=== PATIENT | male | born 1950 | race Caucasian/White ===

== ENCOUNTER 2016-08-14 07:02 | Day surgery (SDC) | payer MEDICARE ==
[2016-08-06 16:05] VITALS: BMI 29.5
[~2016-08-14 07:02] MED LIST: GENTAMICIN 120 MG in SODIUM CHLORIDE 0.9% 100 ML IVPB ONE; LACTATED RINGERS 1,000 ML IV SCH; LIDOCAINE 1% 20 ML VIAL (10MG/ML) FOR IV START INTRADERMA PRN; MIDAZOLAM 2 MG/2 ML VIAL IV PRN; ONDANSETRON 4 MG/2 ML VIAL IVP ONE; ceFAZolin 2 GM in SODIUM CHLORIDE 0.9% 100 ML IVPB ONE
[2016-08-14 07:57] LABS: Glucose,Whole Blood 112 mg/dL (75-99)
[2016-08-14] MEDS ORDERED: MIDAZOLAM 2 MG/2 ML VIAL ONE (08:09)
[2016-08-14] MEDS ORDERED: ROCURONIUM BROMIDE 10 MG/ML 10 ML VIAL IV ONE (08:09)
[2016-08-14] MEDS ORDERED: PROPOFOL 10 MG/ML 20 ML VIAL IV ONE (08:09)
[2016-08-14] MEDS ORDERED: GLYCOPYRROLATE 0.2 MG/ML 2 ML VIAL ONE (08:09)
[2016-08-14] MEDS ORDERED: TRANEXAMIC ACID 1,000 MG/10 ML VIAL ONE (08:09)
[2016-08-14] MEDS ORDERED: fentaNYL (PF) 50 MCG/ML 2 ML AMP ONE (08:09)
[2016-08-14] MEDS ORDERED: HYDROmorphone (PF) 1 MG/ML ONE (08:09)
[2016-08-14] MEDS ORDERED: ePHEDrine 50 MG/ML 1 ML AMP ONE (08:09)
[2016-08-14] MEDS ORDERED: ceFAZolin 1,000 MG, GENTAMICIN 80 MG in SODIUM CHLORIDE 0.9% 1,000 ML IRRIGATION ONE (08:46)
[2016-08-14] MEDS ORDERED: LACTATED RINGERS 1,000 ML IV ONE ×2 (08:59)
[2016-08-14 10:13] VITALS: TEMP 98
[2016-08-14] MEDS: HYDROmorphone 1 MG/ML 1 ML SYRINGE IVP PRN ×2 (10:25→10:33)
[2016-08-14 10:42] VITALS: RESP 18
[2016-08-14] MEDS ORDERED: HYDROcodone/APAP 7.5-325MG 1 EACH TAB PO ONE (11:40)
[2016-08-14 12:12] VITALS: BP 168/83; PULSE 54
[2016-08-14 12:31] LABS: Glucose,Whole Blood 205 mg/dL (75-99)
--- NOTE | 2016-08-15 21:11 | P.OP ---
Date of Procedure: 08/14/16 Preoperative Diagnosis: Organic Erectile Dysfunction Postoperative Diagnosis: Same Procedure(s) Performed: Insertion of AMS 700 CX Inflatable Penile Prosthesis Anesthesia: DEVON Surgeon: Ollie Yeager Insurance Claims Representative #1: Sascha Marshall Estimated Blood Loss (ml): 50 IV fluids (ml): 1,100 Pathology: none sent Condition: stable Disposition: PACU Indications for Procedure: He is a 66-year-old male with a history of erectile dysfunction, dating back to approximately 1999. He hasd several episodes of gross painless hematuriain 2014 , likely due to small renal calculi. He was advised to undergo cystoscopy but decided against it. His ED risk factors include diabetes mellitus and hypertension. He has failed oral agents, and Caverject caused penile pain. A brief trial of tri-mix was unsuccessful. I do not feel MUSE would be a good option for him, given the pain he experienced with Caverject. He is not interested in a vacuum erection device. He has elected to undergo placement of an inflatable penile prosthesis. 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 Description of Procedure: The patient was taken to the operating room and placed in the supine position. The external genitalia and lower abdomen were prepped with Betadine solution, more vigorously and for a greater duration than would be considered normal. The abdomen was then prepped with DuraPrep. The patient was then draped. The scalpel was used to make a midline infrapubic incision. The Bovie electrocautery was used to incise the subcutaneous fat and Tian's fascia, thus exposing the anterior rectus fascia. The corporal bodies were cleared of connective tissue, thus exposing the tunica albuginea. A Peyronie's plaque was noted on the left side. 3-0 PDS stay sutures were placed within the tunica albuginea bilaterally. The stay sutures were placed on the left side away from the Peyronie's plaque. Care was taken to avoid the medial neurovascular complex. On each side, the scalpel was then used to make a longitudinal corporotomy measuring approximately 2-3 cm in length. Metzenbaum scissors were used to develop a plane proximally and distally within each corporal body, just beneath the tunica albuginea. The corporal bodies were then dilated in the standard fashion using Hegar dilators, up to 13 mm. There was no concern of tunica perforation. The corporal bodies were then measured, each measuring 18 cm in length. A 15 cm AMS 700 CX prosthesis was selected, and 3 cm rear-tip extenders were used. The reservoir was irrigated to remove all air bubbles from it. The Bovie electrocautery was used to incise the anterior rectus fascia in the midline, just superior to the pubis. Blunt digital dissection was used to create a space within the retroperitoneum, within which the reservoir was placed. The reservoir tubing was brought through the anterior rectus fascia to the right of the midline, and the fascia was then closed using 0 PDS suture in a running fashion. Each of the cylinders were then placed within the corporal bodies in the standard fashion, using the Anton urologist and Keef needle to pass the cylinders distally and through the glans penis. As each cylinder was placed, it was inflated to ensure that it was seated correctly within the corporal body. The cylinder was then deflated, and the corporotomy was closed using 3-0 PDS suture in a running fashion. Care was taken to avoid damage to either cylinder or tubing. Once the corporotomies had been closed, a dartos pouch was created within the right anterior hemiscrotum. The pump was passed down into this dartos pouch, where it was readily palpable. Next, the reservoir was filled with 65 mL of 0.9 normal saline. The tubing from the reservoir and pump were cut to the appropriate length, and were then connected in the standard fashion. The prosthesis was then cycled, and he was verified to have a rigid and straight erection. Tian's fascia was closed using 3-0 chromic suture in a running fashion, thus burying the tubing. The skin was closed using 3-0 chromic suture in a running subcuticular fashion. Steri-Strips were then applied. The patient was straight catheterized to drain his bladder. The urine drained was clear yellow in color. A sterile gauze dressing was applied over the incision. A scrotal support was also placed. All sponge and needle counts were correct. The patient tolerated the procedure well was taken to the recovery room in stable condition.
== END 2016-08-14 12:32 | disposition home or self-care (01) ==
LOC: OR 07:02
PROVIDERS: ATTEND Urology
DX: N52.01 Erectile dysfunction due to arterial insufficiency (principal); I25.10 Atherosclerotic heart disease of native coronary artery without angina pectoris; I10 Essential (primary) hypertension; Z72.0 Tobacco use; E78.5 Hyperlipidemia, unspecified; E11.9 Type 2 diabetes mellitus without complications; Z79.4 Long term (current) use of insulin; Z79.84 Long term (current) use of oral hypoglycemic drugs; E66.9 Obesity, unspecified; Z68.29 Body mass index [BMI] 29.0-29.9, adult; Z79.82 Long term (current) use of aspirin; Z79.899 Other long term (current) drug therapy
CPT/HCPCS: 54401; C1713; J2250; J1580 ×2; J0690 ×2; J2405; J3010; J1170; J2704

== ENCOUNTER 2017-05-19 12:00 | Emergency (ER) | payer MEDICARE ==
[2017-05-19 12:14] VITALS: RESP 18; TEMP 98.9
[2017-05-19] MEDS ORDERED: MECLIZINE 12.5 MG TAB PO STA (12:54)
[2017-05-19 13:12] LABS: Basophils % (A) 1 %; CH 31.8; CHCM 34.5; Eosinophils # (A) 0.2 k/uL (0-0.7); Eosinophils % (A) 3 %; HCT 45.2 % (39.0-53.0); HDW 2.63; HGB 15.6 gm/dL (13.0-17.5); Luc # (Auto) 0.14; Luc % (Auto) 2; Lymphocytes # (A) 1.7 k/uL (1.0-4.8); Lymphocytes % (A) 25 %; MCH 32.1 pg (25.0-35.0); MCHC 34.6 g/dL (31.0-37.0); MCV 92.7 fL (80.0-100.0); Mean Platelet Volume 7.4; Monocytes # (A) 0.4 k/uL (0-1.0); Monocytes % (A) 6 %; Neutrophils # (A) 4.3 k/uL (1.3-7.7); Neutrophils % (A) 64 %; RBC 4.87 m/uL (4.30-5.90); RDW 12.3 % (11.5-15.5); WBC 6.7 k/uL (3.8-10.6); WBC (Perox) 6.61
[2017-05-19 13:21] LABS: ALT 32 U/L (21-72); AST 22 U/L (17-59); Alkaline Phosphatase 34 U/L (38-126); Anion Gap 13 mmol/L; Blood Urea Nitrogen 20 mg/dL (9-20); Calcium 9.4 mg/dL (8.4-10.2); Carbon Dioxide 18 mmol/L (22-30); Chloride 110 mmol/L (98-107); Glucose 75 mg/dL (74-99); Magnesium 1.9 mg/dL (1.6-2.3); Non-African American GFR(MDRD) 58 (>60 ml/min/1.73 sqM); Potassium 4.7 mmol/L (3.5-5.1); Sodium 141 mmol/L (137-145); Total Bilirubin 0.6 mg/dL (0.2-1.3)
--- NOTE | 2017-05-19 13:45 | ED ---
Dizziness HPI - General Chief Complaint: Dizziness Stated Complaint: Dizziness/nausea Time Seen by Provider: 05/19/17 12:33 Source: patient, RN notes reviewed Mode of arrival: wheelchair Limitations: no limitations - History of Present Illness Initial Comments: This is a 67-year-old male who presents with complaints of dizziness. He states he had 2 or episode 4 days ago which resolved but this morning upon getting up he was very dizzy with movement of his head and positional changes. He also had neck supple headache was Better after taking some ibuprofen. No blurry vision no current head neck or back pain no focal deficits was upper or lower extremities no prior history of vertigo no history of stroke or head injury. No recent upper respiratory infections. MD Complaint: dizziness - Related Data Home Medications Medication Instructions Recorded Confirmed Aspirin 81 mg PO DAILY 06/28/14 05/19/17 Fenofibrate [Tricor] 160 mg PO DAILY 06/28/14 05/19/17 Insulin Glargine [Lantus] 40 unit SQ HS 06/28/14 05/19/17 Lisinopril [Prinivil] 20 mg PO BID 06/28/14 05/19/17 Simvastatin [Zocor] 40 mg PO DAILY 06/28/14 05/19/17 Torsemide [Demadex] 10 mg PO DAILY 06/28/14 05/19/17 cloNIDine HCL [Catapres] 0.2 mg PO TID 06/28/14 05/19/17 metFORMIN HCL [Glucophage] 500 mg PO AC-BID 06/28/14 05/19/17 glipiZIDE [Glucotrol] 5 mg PO AC-BID 07/26/14 05/19/17 amLODIPine [Norvasc] 5 mg PO HS 08/06/16 05/19/17 Atenolol [Tenormin] 50 mg PO BID 05/19/17 05/19/17 Previous Rx's Medication Instructions Recorded Meclizine [Antivert] 25 mg PO TID #20 tab 05/19/17 Allergies Allergy/AdvReac Type Severity Reaction Status Date / Time No Known Allergies Allergy Verified 05/19/17 14:28 Review of Systems ROS Statement: Those systems with pertinent positive or pertinent negative responses have been documented in the HPI. ROS Other: All systems not noted in ROS Statement are negative. Past Medical History Past Medical History: Diabetes Mellitus, GERD/Reflux, Hyperlipidemia, Hypertension, Pneumonia Additional Past Medical History / Comment(s): HEART MURMUR, palpitations, History of Any Multi-Drug Resistant Organisms: None Reported Past Surgical History: Adenoidectomy, Cholecystectomy, Heart Catheterization, Hernia Repair, Orthopedic Surgery, Tonsillectomy Additional Past Surgical History / Comment(s): rt rotator cuff surg., rt knee arthroscopy, hiatal hernia repair, rt inguinal hernia repair, hemorrhoidectomy Past Anesthesia/Blood Transfusion Reactions: Motion Sickness Date of Last Stent Placement:: 2009 Past Psychological History: No Psychological Hx Reported Smoking Status: Former smoker Past Alcohol Use History: None Reported Past Drug Use History: None Reported - Past Family History Father Family Medical History: Unable to Obtain Mother Family Medical History: No Reported History General Exam - General Exam Comments Initial Comments: This is a well-developed well-nourished awake alert oriented times 3 male Limitations: no limitations General appearance: alert, in no apparent distress Head exam: Present: atraumatic, normocephalic, normal inspection Eye exam: Present: normal appearance, PERRL, EOMI. Absent: scleral icterus, conjunctival injection, periorbital swelling ENT exam: Present: normal exam, mucous membranes moist Neck exam: Present: normal inspection. Absent: tenderness, meningismus, lymphadenopathy Respiratory exam: Present: normal lung sounds bilaterally. Absent: respiratory distress, wheezes, rales, rhonchi, stridor Cardiovascular Exam: Present: regular rate, normal rhythm, normal heart sounds. Absent: systolic murmur, diastolic murmur, rubs, gallop, clicks GI/Abdominal exam: Present: soft, normal bowel sounds. Absent: distended, tenderness, guarding, rebound, rigid Extremities exam: Present: normal inspection, full ROM, normal capillary refill. Absent: tenderness, pedal edema, joint swelling, calf tenderness Back exam: Present: normal inspection Neurological exam: Present: alert, oriented X3, CN II-XII intact Psychiatric exam: Present: normal affect, normal mood Skin exam: Present: warm, dry, intact, normal color. Absent: rash Course Vital Signs 05/19/17 05/19/17 05/19/17 12:12 13:31 14:02 Temperature 98.9 F Pulse Rate 77 58 L 54 L Respiratory 18 18 18 Rate Blood Pressure 138/71 131/76 145/81 O2 Sat by Pulse 97 96 96 Oximetry EKG Findings - EKG Results: EKG: interpreted by SHELBY, sinus rhythm (Sinus rhythm with a first-degree AV block rate was 70 MN interval 244 QRS duration 84 QT since QTC of 46/[address]-T wave changes.) Medical Decision Making - Medical Decision Making Patient is feeling improved I did discuss the findings with him regarding the head CT patient will be discharged on Antivert he is follow-up with his doctor return when necessary the presentation consistent with benign positional vertigo I did discuss case with Dr. Haro the patient will be discharged on at this time and Vioxx or not indicated. - Lab Data Result diagrams: 05/19/17 12:50 05/19/17 12:50 Lab Results 05/19/17 05/19/17 05/19/17 Range/Units 12:50 12:50 12:50 WBC 6.7 (3.8-10.6) k/uL RBC 4.87 (4.30-5.90) m/uL Hgb 15.6 (13.0-17.5) gm/dL Hct 45.2 (39.0-53.0) % MCV 92.7 (80.0-100.0) fL MCH 32.1 (25.0-35.0) pg MCHC 34.6 (31.0-37.0) g/dL RDW 12.3 (11.5-15.5) % Plt Count 282 (150-450) k/uL Neutrophils % 64 % Lymphocytes % 25 % Monocytes % 6 % Eosinophils % 3 % Basophils % 1 % Neutrophils # 4.3 (1.3-7.7) k/uL Lymphocytes # 1.7 (1.0-4.8) k/uL Monocytes # 0.4 (0-1.0) k/uL Eosinophils # 0.2 (0-0.7) k/uL Basophils # 0.0 (0-0.2) k/uL Sodium 141 (137-145) mmol/L Potassium 4.7 (3.5-5.1) mmol/L Chloride 110 H (98-107) mmol/L Carbon Dioxide 18 L (22-30) mmol/L Anion Gap 13 mmol/L BUN 20 (9-20) mg/dL Creatinine 1.24 (0.66-1.25) mg/dL Est GFR (MDRD) Af Amer >60 (>60 ml/min/1.73 sqM) Est GFR (MDRD) Non-Af 58 (>60 ml/min/1.73 sqM) Glucose 75 (74-99) mg/dL Calcium 9.4 (8.4-10.2) mg/dL Magnesium 1.9 (1.6-2.3) mg/dL Total Bilirubin 0.6 (0.2-1.3) mg/dL AST 22 (17-59) U/L ALT 32 (21-72) U/L Alkaline Phosphatase 34 L (38-126) U/L Total Creatine Kinase 61 (55-170) U/L CK-MB (CK-2) 1.0 (0.0-2.4) ng/mL CK-MB (CK-2) Rel Index 1.6 Total Protein 7.0 (6.3-8.2) g/dL Albumin 4.2 (3.5-5.0) g/dL TSH 2.140 (0.465-4.680) mIU/L - Radiology Data Radiology results: report reviewed (I did review the imaging and reports possible evidence of mastoiditis otherwise no acute changes), image reviewed Disposition Clinical Impression: Benign paroxysmal positional vertigo Disposition: HOME SELF-CARE Condition: Good Instructions: Dizziness (ED), Benign Paroxysmal Positional Vertigo (ED) Prescriptions: Meclizine [Antivert] 25 mg PO TID #20 tab Referrals: Alex Timmons MD [Primary Care Provider] - 1-2 days
--- NOTE | 2017-05-19 14:09 | CT ---
EXAMINATION TYPE: CT brain wo con DATE OF EXAM: 05/19/2017 COMPARISON: NONE HISTORY: Dizziness CT DLP: 782.6 mGycm Automated exposure control for dose reduction was used. Helical imaging through the brain FINDINGS: There is mild cortical atrophy. No hemorrhage or hydrocephalus. Calvarium is intact. Suspect some Whi te matter low-attenuation within the periventricular locations. Mastoid air cells show some questiona ble inflammatory change on the right. Cerebral vascular calcifications are present. The orbits show s ymmetric appearance. IMPRESSION: CORRELATE FOR POSSIBLE MASTOIDITIS ON THE RIGHT. AGE-RELATED CHANGES OF ATROPHY AND PROBABLE CHRONIC SMALL VESSEL ISCHEMIA.
[2017-05-19 14:11] VITALS: BP 145/81; PULSE 54
== END 2017-05-19 15:21 | disposition home or self-care (01) ==
LOC: EC 12:00
DX: H81.10 Benign paroxysmal vertigo, unspecified ear (principal); R51 Headache; E78.5 Hyperlipidemia, unspecified; I10 Essential (primary) hypertension; E11.9 Type 2 diabetes mellitus without complications; Z87.891 Personal history of nicotine dependence; Z79.4 Long term (current) use of insulin; Z79.82 Long term (current) use of aspirin; Z79.899 Other long term (current) drug therapy
CPT/HCPCS: 36415; 70450; 80053; 82550; 82553; 83735; 84443; 85025; 93005; 99284

== ENCOUNTER → 2019-04-08 | Outpatient (CLI) | payer MEDICARE | END | disposition home or self-care (01) | LOC: LABWHC1 11:53 | PROVIDERS: ATTEND Internal Medicine Gastroenterology | DX: K52.9 Noninfective gastroenteritis and colitis, unspecified (principal) | CPT/HCPCS: 83993 ==

== ENCOUNTER → 2019-04-27 | Outpatient (CLI) | payer MEDICARE ==
--- NOTE | 2019-04-27 15:54 | US ---
EXAMINATION TYPE: US kidneys/renal and bladder DATE OF EXAM: 04/27/2019 COMPARISON: CT abdomen and pelvis January 09, 2015 CLINICAL HISTORY: N39.0 UTI. HX UTI. No pain currently. EXAM MEASUREMENTS: Right Kidney: 12.2 x 5.3 x 6.1 cm Left Kidney: 11.2 x 5.1 x 5.3 cm Right Kidney: Lower pole echogenic focus with shadow = 0.7 x 0.7 cm Left Kidney: Nonshadowing echogenic focus in lower pole- 0.4 x 0.6 cm Bladder: Under distended, wall= 5.3 mm upper limits of normal for a poorly distended bladder Bilateral Jets not seen There is no evidence for hydronephrosis at this point in time. No nephrolithiasis is seen. No patricia s are identified. The urinary bladder is not greatly distended. Bilateral ureteral jets are not see n. IMPRESSION: Small bilateral renal calculi seen better on CT 2015 versus ultrasound. No hydronephrosis is noted bilaterally.
== END | disposition home or self-care (01) ==
LOC: RADUSWWP 15:16
PROVIDERS: ATTEND Internal Medicine Geriatric Medicine
DX: N39.0 Urinary tract infection, site not specified (principal)
CPT/HCPCS: 76770

== ENCOUNTER 2022-03-20 06:45 | Day surgery (SDC) | payer MEDICARE ==
[2022-03-18 10:09] VITALS: BMI 29.5
[~2022-03-20 06:45] MED LIST changes: -GENTAMICIN 120 MG in SODIUM CHLORIDE 0.9% 100 ML IVPB ONE; -LIDOCAINE 1% 20 ML VIAL (10MG/ML) FOR IV START INTRADERMA PRN; -MIDAZOLAM 2 MG/2 ML VIAL IV PRN; +MOXIFLOXACIN HCL 0.5% DROPS 3 ML BTL OP PRN; -ONDANSETRON 4 MG/2 ML VIAL IVP ONE; +TETRACAINE 0.5% OPHTH (PF) DROPS 4 ML BTL OP PRN; +TIMOLOL 0.5% OPHTH DROPS 5 ML BTL OP PRN; -ceFAZolin 2 GM in SODIUM CHLORIDE 0.9% 100 ML IVPB ONE
[2022-03-20] MEDS: CYCLOPENTOLATE 1% OPHTH SOLN 2 ML BTL OP PRN ×3 (07:26→07:38)
[2022-03-20 07:28] VITALS: TEMP 97.5
[2022-03-20] MEDS: PHENYLEPHRINE 2.5% OPHTH DRP 2ML OP PRN ×3 (07:29→07:41)
[2022-03-20 07:41] LABS: Glucose,Whole Blood 146 mg/dL (70-110)
[2022-03-20] MEDS ORDERED: TIMOLOL 0.5% OPHTH SOLN (PF) 0.2 ML DROPERETTE LEFT EYE ONE ×2 (07:53→08:10)
[2022-03-20] MEDS ORDERED: MOXIFLOXACIN HCL 0.5% DROPS 3 ML BTL LEFT EYE ONE ×2 (07:53→08:10)
[2022-03-20] MEDS ORDERED: BALANCED SALT IRRIG SOLN COMB2 15 ML IRRIG.SOLN INTRAOCULA ONE ×2 (07:53→08:10)
[2022-03-20] MEDS ORDERED: HYALURONATE SODIUM INTRAOCULAR 1 EACH SYRINGE (12MG/ML) INTRAOCULA ONE ×2 (07:53→08:10)
[2022-03-20] MEDS ORDERED: LIDOCAINE 1% (PF) 10MG/ML VIAL MISCELLANE ONE ×2 (07:54→08:10)
[2022-03-20] MEDS ORDERED: fentaNYL (PF) 50 MCG/ML 2 ML AMP ONE (08:09)
[2022-03-20] MEDS ORDERED: MIDAZOLAM 2 MG/2 ML VIAL ONE (08:09)
[2022-03-20] MEDS ORDERED: EPINEPHrine (PF) 0.3 ML in BALANCED SALT IRRIG SOLN COMB2 500 ML IRRIGATION ONE (08:11)
--- NOTE | 2022-03-20 08:36 | P.OP ---
Date of Procedure: 03/20/22 Preoperative Diagnosis: NS & CS Postoperative Diagnosis: same Procedure(s) Performed: PIOL, OS Implants: MX60 21.00 Anesthesia: MAC Surgeon: Vitaliy Craig Pathology: none sent Condition: stable Disposition: same day Indications for Procedure: blurry vision Operative Findings: no complications
[2022-03-20] MEDS ORDERED: LACTATED RINGERS 1,000 ML IV ONE (08:38)
[2022-03-20 08:46] VITALS: RESP 17
[2022-03-20 09:01] VITALS: BP 145/85; PULSE 61
--- NOTE | 2022-03-20 23:24 | OP ---
OPERATIVE REPORT PROCEDURE PERFORMED: Phacoemulsification of cataract and intraocular lens implant to the left eye. 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 POSTOPERATIVE DIAGNOSES: Nuclear sclerosis and cortical sclerosis. NARRATIVE: After obtaining the appropriate consent, the patient was brought to the operating room. There the patient was placed under cardiac monitoring, prepped and draped in the usual sterile manner. The patient was approached from the left temporal side. The mm Alton ring inked in gentian katherine was placed centrally on the cornea. At the 11 o'clock position, a 1.1 mm keratome was used to create a paracentesis port. Through this opening, 1% Xylocaine MPF 50/50 mix with balanced salt solution was injected into the anterior chamber. This was followed by stabilization of the anterior chamber with Amvisc viscoelastic. At the 9 o'clock position, a 2.75 mm roman keratome was used to create a self-scaling corneal flap incision in a Langerman fashion. Through this opening, a cystotome was introduced to begin a continuous tear capsulorrhexis which was completed using the Utrata forceps. Care was taken to ensure that the capsulorrhexis was at least the size of the omari on the anterior cornea. Hydrodissection and hydrodelineation of the lens were accomplished with balanced salt solution. Phacoemulsification of the lens utilizing phaco chop was accomplished in 9.29 seconds at 13% power. Addition Xylocaine MPF was instilled into the anterior chamber. This was followed by removal of the remaining cortex under irrigation and aspiration along with careful polishing of the posterior capsule in a capsule vacuum mode. Additional Amvisc viscoelastic was then used to stabilize the capsular bag, and the Bausch [employer] Lomb MX60E 21.0 diopters intraocular lens was injected into the capsular bag without difficulty. The lens was rotated 270 degrees so that the haptics resided at the 6 and 12 o'clock positions, and all remaining viscoelastic was then removed from within the capsular bag and around the anterior chamber. The eye was brought to normal intraocular pressure through the paracentesis port along with slight hydration of the incision sites. Watertight integrity was confirmed using a fluorescein strip. The patient then received 2 drops of 0.5% timolol followed by 2 drops of Vigamox and 2 drops of 1% atropine. The patient was then lightly patched and shielded in the usual manner. There was no complications from the procedure. The patient tolerated the procedure well and was returned to outpatient recovery in good condition. MMODL / IJN: [id number] /
== END 2022-03-20 09:15 | disposition home or self-care (01) ==
LOC: OR 06:45
PROVIDERS: ATTEND Ophthalmology
DX: E11.36 Type 2 diabetes mellitus with diabetic cataract (principal); H25.12 Age-related nuclear cataract, left eye; H25.012 Cortical age-related cataract, left eye; Z98.41 Cataract extraction status, right eye; Z96.1 Presence of intraocular lens; I10 Essential (primary) hypertension; Z86.73 Personal history of transient ischemic attack (TIA), and cerebral infarction without residual deficits; Z79.899 Other long term (current) drug therapy; Z79.4 Long term (current) use of insulin; E11.69 Type 2 diabetes mellitus with other specified complication; E78.5 Hyperlipidemia, unspecified; K21.9 Gastro-esophageal reflux disease without esophagitis; Z79.82 Long term (current) use of aspirin; Z87.891 Personal history of nicotine dependence; Z82.49 Family history of ischemic heart disease and other diseases of the circulatory system
CPT/HCPCS: 66984; C1780; J2250; J0171; J3010; J2001

== ENCOUNTER 2023-04-24 11:33 | Observation (INO) | payer MEDICARE ==
--- NOTE | 2023-04-24 12:57 | ED ---
General Adult HPI - General Source: patient, RN notes reviewed Mode of arrival: ambulatory Limitations: no limitations <Bony Milian - Last Filed: 04/24/23 15:35> <Greyson Li - Last Filed: 04/24/23 18:11> - General Stated complaint: Eye Issue, sent by pcp for Neuro Consult Time Seen by Provider: 04/24/23 12:56 - History of Present Illness Initial comments: 33-year-old male presents emergency Department from home by her condition to come in for evaluation of CVA. Patient's been having some visual disturbances states that he leg as I is bouncing up and down. Patient did see PCP yesterday worsened and advised to come in. (Bony Milian) This is a 73-year-old male who presents emergency Department complaining that 3 weeks ago he had some eye that was deviating up to the right and he stated that lasted for a little while and then went away on its own. Patient states it is much of it and then 2 days ago he started having symptoms where his eyes were both moving he states spontaneously and his vision was extremely blurred on that also subsided but he went saw his cube machine tender yesterday his cube machine tender that there was nothing going on with his eyes and that he needed to immediately see a neurologist he contacted his primary medical care doctor's medical care doctor wanted the patient to come to the hospital and be evaluated by neurologist. Patient states currently his only symptom is just overall fatigue and he just doesn't feel quite right. Patient denies any numbness weakness. P atient denies any fever chills or cough. Patient denies any lightheadedness or dizziness. Patient denies any chest pain difficulty breathing or shortness of breath. (Greyson Li) - Related Data Home Medications Medication Instructions Recorded Confirmed Aspirin 81 mg PO DAILY@0800 06/28/14 04/24/23 Fenofibrate [Tricor] 160 mg PO DAILY@0800 06/28/14 04/24/23 Insulin Glargine [Lantus] 45 unit SQ DAILY@0800 06/28/14 04/24/23 cloNIDine HCL [Catapres] 0.2 mg PO TID@0800,1700,2300 06/28/14 04/24/23 lisinopriL [Prinivil] 20 mg PO BID@0800,2300 06/28/14 04/24/23 metFORMIN HCL [Glucophage] 1,000 mg PO AC-BID 06/28/14 04/24/23 glipiZIDE [Glucotrol] 2.5 - 5 mg PO AC-BID PRN 07/26/14 04/24/23 amLODIPine [Norvasc] 5 mg PO HS@2300 08/06/16 04/24/23 Magnesium 250 mg PO DAILY@0800 04/24/23 04/24/23 Metoprolol Succinate [Toprol XL] 100 mg PO HS@2300 04/24/23 04/24/23 Omeprazole [PriLOSEC] 20 mg PO BID@0800,2300 04/24/23 04/24/23 Potassium Citrate [Potassium 10 meq PO DAILY@0800 04/24/23 04/24/23 Citrate ER] Rosuvastatin [Crestor] 20 mg PO DAILY@0800 04/24/23 04/24/23 Tamsulosin [Flomax] 0.4 mg PO DAILY@0800 04/24/23 04/24/23 Torsemide [Demadex] 5 mg PO DAILY@0800 04/24/23 04/24/23 Zinc Gluconate [Zinc] 50 mg PO DAILY@0800 04/24/23 04/24/23 cycloSPORINE 0.05% OPHTH SOLN 1 applicator BOTH EYES 04/24/23 04/24/23 [Restasis] BID@0800,2300 Allergies Allergy/AdvReac Type Severity Reaction Status Date / Time No Known Allergies Allergy Verified 04/24/23 15:57 Review of Systems ROS Other: All systems not noted in ROS Statement are negative. <Bony Milian - Last Filed: 04/24/23 15:35> ROS Other: All systems not noted in ROS Statement are negative. <Greyson Li - Last Filed: 04/24/23 18:11> ROS Statement: Those systems with pertinent positive or pertinent negative responses have been documented in the HPI. Past Medical History Past Medical History: Diabetes Mellitus, GERD/Reflux, Hyperlipidemia, Hypertension, Pneumonia Additional Past Medical History / Comment(s): HEART MURMUR, palpitations History of Any Multi-Drug Resistant Organisms: None Reported Past Surgical History: Adenoidectomy, Cholecystectomy, Heart Catheterization, Hernia Repair, Orthopedic Surgery, Tonsillectomy Additional Past Surgical History / Comment(s): rt rotator cuff surg., rt knee arthroscopy, hiatal hernia repair, rt inguinal hernia repair, hemorrhoidectomy Past Anesthesia/Blood Transfusion Reactions: No Reported Reaction, Motion Sickness Date of Last Stent Placement:: 2009 Past Psychological History: No Psychological Hx Reported Smoking Status: Never smoker Past Alcohol Use History: None Reported Additional Past Alcohol Use History / Comment(s): past occ cigar use Past Drug Use History: None Reported - Past Family History Father Family Medical History: Myocardial Infarction ([place]) Additional Family Medical History / Comment(s): in his 40's due to [place] Mother Family Medical History: No Reported History <Bony Milian - Last Filed: 04/24/23 15:35> General Exam <Bony Milian - Last Filed: 04/24/23 15:35> <Greyson Li - Last Filed: 04/24/23 18:11> - General Exam Comments Initial Comments: Was pt. sent in by a medical professional or institution (Dr. PA, DELIVERY RECRUITER, urgent care, hospital, or intermediate...) When possible be specific @ -[No] Did you speak to anyone other than the patient for history (EMS, parent, family, police, friend...)? What history was obtained from this source @ -[No] Did you review nursing and triage notes (agree or disagree)? Why? @ -[I reviewed and agree with nursing and triage notes] Visual Physical Exam Vital signs reviewed General: Well-appearing, nontoxic, no acute distress. Head: Normocephalic, atraumatic Eyes: PERRLA, EOMI ENT: Airway patent Chest: Nonlabored breathing Skin: No visual rash, normal skin tone Neuro: Alert and oriented 3 Musculoskeletal: No gross abnormalities (Bony Milian) GENERAL: Patient is well-developed and well-nourished. Patient is nontoxic and well- hydrated and is in no acute distress. ENT: Neck is soft and supple. No significant lymphadenopathy is noted. Oropharynx is clear. Moist mucous membranes. Neck has full range of motion without eliciting any pain. EYES: The sclera were anicteric and conjunctiva were pink and moist. Extraocular movements were intact and pupils were equal round and reactive to light. Eyelids were unremarkable. PULMONARY: Unlabored respirations. Good breath sounds bilaterally. No audible rales rhonchi or wheezing was noted. CARDIOVASCULAR: There is a regular rate and rhythm without any murmurs gallops or rubs. ABDOMEN: Soft and nontender with normal bowel sounds. SKIN: Skin is clear with no lesions or rashes and otherwise unremarkable. NEUROLOGIC: Patient is alert and oriented x3. Cranial nerves II through XII are grossly intact. Motor and sensory are also intact. Normal speech, volume and content. Symmetrical smile. MUSCULOSKELETAL: Normal extremities with adequate strength and full range of motion. LYMPHATICS: No significant lymphadenopathy is noted PSYCHIATRIC: Normal psychiatric evaluation. (Greyson Li) Course Vital Signs 04/24/23 04/24/23 04/24/23 12:53 16:58 17:32 Temperature 98.6 F 98.1 F Pulse Rate 65 78 63 Respiratory 18 18 18 Rate Blood Pressure 165/94 162/89 211/97 O2 Sat by Pulse 97 98 97 Oximetry Medical Decision Making - Lab Data Result diagrams: 04/24/23 13:18 04/24/23 13:18 <Bony Milian - Last Filed: 04/24/23 15:35> - Lab Data Result diagrams: 04/24/23 13:18 04/24/23 13:18 <Greyson Li - Last Filed: 04/24/23 18:11> - Medical Decision Making I performed a quick note portion of this chart signed Bony Milian PA-C (Bony Milian) EKG was interpreted by myself. EKG shows a sinus rhythm at 63 bpm VA interval is 297 QRSs 104 Q-T intervals 408 QTC is 414 per patient's EKG shows no ST segment elevation or depression Was pt. sent in by a medical professional or institution (MIC Wood, DELIVERY RECRUITER, urgent care, hospital, or intermediate...) When possible be specific @ -Patient's primary medical care doctor told him to come to the emergency department as well as his eye doctor told to follow-up with the neurologist immediately Did you speak to anyone other than the patient for history (EMS, parent, family, police, friend...)? What history was obtained from this source @ -[No] Did you review nursing and triage notes (agree or disagree)? Why? @ -[I reviewed and agree with nursing and triage notes] Were old charts reviewed (outside hosp., previous admission, EMS record, old EKG, old radiological studies, urgent care reports/EKG's, intermediate records)? Report findings @ -I reviewed prior charts in prior lab work on this patient Differential Diagnosis (chest pain, altered mental status, abdominal pain women, abdominal pain men, vaginal bleeding, weakness, fever, dyspnea, syncope, headache, dizziness, GI bleed, back pain, seizure, CVA, palpatations, mental health, musculoskeletal)? @ -Differential CVA Ischemic stroke, hemorrhagic stroke, brain tumor, atypical migraine, Wernicke's encephalopathy, seizure, multiple sclerosis, meningitis, encephalitis, hypog lycemia, Guillain-Harry, electrolytes disturbance, myasthenia gravis.... This is not meant to be an all-inclusive list EKG interpreted by me (3pts min.). @ -[As above] X-rays interpreted by me (1pt min.). @ -Chest x-ray showed no acute abnormality CT interpreted by me (1pt min.). @ -CT of the brain showed no acute abnormality U/S interpreted by me (1pt. min.). @ -[None done] What testing was considered but not performed or refused? (CT, X-rays, U/S, labs)? Why? @ -[None] What meds were considered but not given or refused? Why? @ -[None] Did you discuss the management of the patient with other professionals (professionals i.e. , PA, DELIVERY RECRUITER, lab, RT, psych nurse, rn social services, corporate real estate manager, teacher, ordnance corps officer, catalytic case operator)? Give summary @ -I spoke with Dr. Gandhi he agreed to admit the patient admitted the patient I wrote admitting orders Was smoking cessation discussed for >3mins.? @ -[No] Was critical care preformed (if so, how long)? @ -[No] Were there social determinants of health that impacted care today? How? (Homelessness, low income, unemployed, alcoholism, drug addiction, transportation, low edu. Level, literacy, decrease access to med. care, fdc, rehab)? @ -[No] Was there de-escalation of care discussed even if they declined (Discuss DNR or withdrawal of care, Hospice)? DNR status @ -[No] What co-morbidities impacted this encounter? (DM, HTN, Smoking, COPD, CAD, Cancer, CVA, ARF, Chemo, Hep., AIDS, mental health diagnosis, sleep apnea, morbid obesity)? @ -[None] Was patient admitted / discharged? Hospital course, mention meds given and route, prescriptions, significant lab abnormalities, going to OR and other pertinent info. @ -Patient continued to feel lethargic but was no longer having any visual disturbance while in the emergency department did complain of a headache and a CAT scan was done and showed no acute abnormality. I spoke with Dr. Gandhi and he agreed to admit the patient I consult neurology Undiagnosed new problem with uncertain prognosis? @ -[No] Drug Therapy requiring intensive monitoring for toxicity (Heparin, Nitro, Insulin, Cardizem)? @ -[No] Were any procedures done? @ -[No] Diagnosis/symptom? @ -TIA Acute, or Chronic, or Acute on Chronic? @ -Acute Uncomplicated (without systemic symptoms) or Complicated (systemic symptoms)? @ -Complicated Side effects of treatment? @ -[No] Exacerbation, Progression, or Severe Exacerbation? @ -[No] Poses a threat to life or bodily function? How? (Chest pain, [place], [place], pneumonia, PE, COPD, DKA, ARF, appy, cholecystitis, CVA, Diverticulitis, Homicidal, Suicidal, threat to staff... and all critical care pts) @ -Yes this could lead to a CVA and significant end organ dysfunction (Greyson Li) - Lab Data Lab Results 04/24/23 04/24/23 04/24/23 Range/Units 13:18 13:18 13:18 WBC 8.0 (3.8-10.6) k/uL RBC 5.13 (4.30-5.90) m/uL Hgb 15.5 (13.0-17.5) gm/dL Hct 47.6 (39.0-53.0) % MCV 92.8 (80.0-100.0) fL MCH 30.2 (25.0-35.0) pg MCHC 32.5 (31.0-37.0) g/dL RDW 12.5 (11.5-15.5) % Plt Count 258 (150-450) k/uL MPV 7.6 Neutrophils % 68 % Lymphocytes % 24 % Monocytes % 5 % Eosinophils % 2 % Basophils % 0 % Neutrophils # 5.4 (1.3-7.7) k/uL Lymphocytes # 1.9 (1.0-4.8) k/uL Monocytes # 0.4 (0-1.0) k/uL Eosinophils # 0.1 (0-0.7) k/uL Basophils # 0.0 (0-0.2) k/uL PT 10.2 (9.0-12.0) sec INR 1.0 (<1.2) APTT 23.8 (22.0-30.0) sec Sodium 137 (137-145) mmol/L Potassium 4.9 (3.5-5.1) mmol/L Chloride 106 (98-107) mmol/L Carbon Dioxide 21 L (22-30) mmol/L Anion Gap 10 mmol/L BUN 20 (9-20) mg/dL Creatinine 1.31 H (0.66-1.25) mg/dL Est GFR (CKD-EPI)AfAm 62 (>60 ml/min/1.73 sqM) Est GFR (CKD-EPI)NonAf 54 (>60 ml/min/1.73 sqM) Glucose 180 H (74-99) mg/dL Calcium 9.7 (8.4-10.2) mg/dL Total Bilirubin 0.6 (0.2-1.3) mg/dL AST 22 (17-59) U/L ALT 21 (4-49) U/L Alkaline Phosphatase 34 L (38-126) U/L Creatine Kinase 62 (55-170) U/L Total Protein 7.1 (6.3-8.2) g/dL Albumin 4.2 (3.5-5.0) g/dL Disposition <Bony Milian - Last Filed: 04/24/23 15:35> Time of Disposition: 15:50 <Greyson Li - Last Filed: 04/24/23 18:11> Clinical Impression: TIA (transient ischemic attack) Disposition: ADMITTED IP TO THIS HOSP
[2023-04-24 13:42] LABS: Basophils % (A) 0 %; Eosinophils # (A) 0.1 k/uL (0-0.7); Eosinophils % (A) 2 %; HCT 47.6 % (39.0-53.0); HGB 15.5 gm/dL (13.0-17.5); Lymphocytes # (A) 1.9 k/uL (1.0-4.8); Lymphocytes % (A) 24 %; MCH 30.2 pg (25.0-35.0); MCHC 32.5 g/dL (31.0-37.0); MCV 92.8 fL (80.0-100.0); Mean Platelet Volume 7.6; Monocytes # (A) 0.4 k/uL (0-1.0); Monocytes % (A) 5 %; Neutrophils # (A) 5.4 k/uL (1.3-7.7); Neutrophils % (A) 68 %; Platelet Count 258 k/uL (150-450); RBC 5.13 m/uL (4.30-5.90); RDW 12.5 % (11.5-15.5)
[2023-04-24 13:49] LABS: Partial Thromboplastin Time 23.8 sec (22.0-30.0); Prothrombin Time 10.2 sec (9.0-12.0)
[2023-04-24 13:51] LABS: ALT 21 U/L (4-49); AST 22 U/L (17-59); African American GFR (CKD) 62 (>60 ml/min/1.73 sqM); Albumin 4.2 g/dL (3.5-5.0); Alkaline Phosphatase 34 U/L (38-126); Anion Gap 10 mmol/L; Blood Urea Nitrogen 20 mg/dL (9-20); Calcium 9.7 mg/dL (8.4-10.2); Carbon Dioxide 21 mmol/L (22-30); Chloride 106 mmol/L (98-107); Creatine Kinase 62 U/L (55-170); Glucose 180 mg/dL (74-99); Non-African American GFR(CKD) 54 (>60 ml/min/1.73 sqM); Potassium 4.9 mmol/L (3.5-5.1); Sodium 137 mmol/L (137-145); Total Bilirubin 0.6 mg/dL (0.2-1.3); Total Protein 7.1 g/dL (6.3-8.2)
--- NOTE | 2023-04-24 14:10 | CT ---
EXAMINATION TYPE: CT brain wo con DATE OF EXAM: 04/24/2023 COMPARISON: None HISTORY: Neuro deficit, eye issues, sent by PCP for neuro consult CT DLP: 1130.[address] of the brain was performed. The ventricles, basal cisterns and sulci overlying the cerebral convexities demonstrate mild enlargem ent. There is no evidence for intracranial hemorrhage or sulcal effacement. There is decreased attenuation about the periventricular white matter and deep white matter of both c erebral hemispheres, compatible with chronic small vessel ischemia. Differential diagnosis does inclu de demyelination. No mass effects are seen.No midline shift. Osseous calvarium is intact. If symptoms persist consider MRI. IMPRESSION: 1. Age related atrophic and chronic small vessel ischemic change without acute intracranial process s een at this time.
[2023-04-24] MEDS: cloNIDine HCL 0.2 MG TAB PO SCH ×2 (17:25→21:56)
[2023-04-24] MEDS ORDERED: metFORMIN 500 MG TAB PO SCH (17:30)
[2023-04-24] MEDS: INSULIN ASPART (NovoLOG) 100 UNIT/ML VIAL SQ SCH ×2 (17:38→21:56)
[2023-04-24 20:13] LABS: Glucose,Whole Blood 158 mg/dL (70-110)
--- NOTE | 2023-04-24 20:20 | US ---
EXAMINATION TYPE: US carotid duplex BILAT DATE OF EXAM: 04/24/2023 COMPARISON: 05/31/14 CLINICAL INDICATION: Male, 73 years old with history of stroke; Vision problems. Poss stroke TECHNIQUE: Carotid duplex ultrasound examination. Indirect Doppler criteria was utilized. FINDINGS: EXAM MEASUREMENTS: RIGHT: Peak Systolic Velocity (PSV) cm/sec ----- Right CCA: 68.2 ----- Right ICA: 91.5 ----- Right ECA: 116.1 ICA/CCA ratio: 1.3 RIGHT: End Diastole cm/sec ----- Right CCA: 10.0 ----- Right ICA: 17.3 ----- Right ECA: 6.3 LEFT: Peak Systolic Velocity (PSV) cm/sec ----- Left CCA: 79.2 ----- Left ICA: 73.9 ----- Left ECA: 95.1 ICA/CCA ratio: 0.9 LEFT: End Diastole cm/sec ----- Left CCA: 13.1 ----- Left ICA: 15.7 ----- Left ECA: 0.0 VERTEBRALS (direction of flow): Right Vertebral: Antegrade Left Vertebral: Antegrade Rhythm: Normal WATER INSPECTOR NOTES: Mild plaque seen in bilateral bulbs IMPRESSION: Less than 50% stenosis of the bilateral carotid bifurcations. Criteria for Assigning % of Stenosis / Diameter reduction (Estimation based on the indirect measurements of the internal carotid artery velocities (ICA PSV). 1. Normal (no stenosis)=ICA PSV < 125 cm/s: ratio < 2.0: ICA EDV<40 cm/s. 2. Less than 50% stenosis=ICA PSV < 125 cm/s: ratio < 2.0: ICA EDV<40 cm/s. 3. 50 to 69% stenosis=ICA PSV of 125 to 230 cm/s: ration 2.0 ? 4.0: ICA EDV 40-100 cm/s. 4. Greater than 70% stenosis to near occlusion= ICA PSV > 230 cm/s: ratio > 4.0: ICA EDV > 100 cm/s. 5. Near occlusion= ICA PSV velocities may be low or undetectable: variable ratio and ICA EDV. 6. Total occlusion=unable to detect flow.
[2023-04-24] MEDS: METOPROLOL SUCCINATE (ER) 100 MG TAB.ER.24H PO SCH (21:56)
[2023-04-24] MEDS: lisinopriL 20 MG TAB PO SCH (21:56)
[2023-04-24] MEDS: PANTOPRAZOLE 40 MG TABLET PO SCH (21:57)
[2023-04-24] MEDS: ACETAMINOPHEN TAB 325 MG TAB PO PRN (21:57)
[2023-04-24] MEDS: amLODIPine 5 MG TAB PO SCH (21:57)
[2023-04-24] MEDS: cycloSPORINE 0.05% OPHTH 0.4 ML DROPERETTE BOTH EYES SCH (22:00)
--- NOTE | 2023-04-24 23:40 | P.HPIM ---
History of Present Illness H&P Date: 04/24/23 Chief Complaint: Visual disturbance Patient is a 73-year-old male with a known history of hypertension, hyperlipidemia, diabetes type 2 insulin-dependent, prior history of cardiac catheterization presents to ER with complaints of visual disturbance. Patient was seen by PCP yesterday and was advised come to ER. Patient states that about 2 days ago his eye he was acting differently and was bouncing up and down for about 4 to 5 seconds. Patient also complains of right eye fluttering since then. Patient went to see his shear grinder operator yesterday and was told nothing was going in his eyes and recommended to see a neurologist. Patient contacted his PCP and was recommended to go to ER to be evaluated by neurology. Patient states that 3 weeks ago his friends noticed that left eye pointing upward. Since then he has been having blurry vision. Patient states that he francois s dry eyes and takes ocular lubricants. Complains of mild headache in the center of the head. Denies any dizziness or lightheadedness. No complaints of chest pain or shortness of breath. No palpitations. No leg swelling. Denies any focal weakness. No numbness or tingling in the legs or hands. On admission blood pressure 162/94 pulse is 65 respiration 18 and pulse ox 97% on room air. CT head showed age-related atrophy and chronic small vessel ischemic changes without acute intracranial process. EKG showed sinus rhythm with first-degree AV block. Laboratory pressure WBC 8.0 hemoglobin 15.5 and platelets 258 Sodium 137 potassium 4.9 chloride 106 bicarb is 21 BUN 20 and creatinine 1.31. Blood sugar 180 Liver enzymes showed AST 22 ALT 21 alk phos 34 and CK 62. Review of Systems Constitutional: Patient denies any fever or chills . no Generalized weakness. Abdomen: Patient denied any nausea or vomiting or abd. pain Cardiovascular: Patient denies any chest pain or short of breath no palpitations. Respiratory: patient denied any cough . no sputum production. No shortness of breath Neurologic: Patient denied any numbness or tingling headache.Blurry vision. Musculoskeletal: Patient denies any complaints of joint swelling or deformity. Skin: Negative Psychiatric: Negative Endocrine: No heat or cold intolerance. No recent weight gain. Genitourinary: No dysuria or hematuria. All other 14 point ROS negative except the above Past Medical History Past Medical History: Diabetes Mellitus, GERD/Reflux, Hyperlipidemia, Hypertension, Pneumonia Additional Past Medical History / Comment(s): HEART MURMUR, palpitations History of Any Multi-Drug Resistant Organisms: None Reported Past Surgical History: Adenoidectomy, Cholecystectomy, Heart Catheterization, Hernia Repair, Tonsillectomy Additional Past Surgical History / Comment(s): rt rotator cuff surg., rt knee arthroscopy, hiatal hernia repair, rt inguinal hernia repair, hemorrhoidectomy, rhinoplasty Past Anesthesia/Blood Transfusion Reactions: No Reported Reaction, Motion Sickness Date of Last Stent Placement:: 2009 Past Psychological History: No Psychological Hx Reported Smoking Status: Never smoker Past Alcohol Use History: None Reported Past Drug Use History: None Reported - Past Family History Father Family Medical History: Myocardial Infarction ([place]) Additional Family Medical History / Comment(s): at 45 due to [place] Mother Family Medical History: Rheumatoid Arthritis ([place]) Medications and Allergies Home Medications Medication Instructions Recorded Confirmed Type Aspirin 81 mg PO DAILY@0800 06/28/14 04/24/23 History Fenofibrate [Tricor] 160 mg PO DAILY@0800 06/28/14 04/24/23 History Insulin Glargine [Lantus] 45 unit SQ DAILY@0800 06/28/14 04/24/23 History cloNIDine HCL [Catapres] 0.2 mg PO TID@0800,1700,2300 06/28/14 04/24/23 History lisinopriL [Prinivil] 20 mg PO BID@0800,2300 06/28/14 04/24/23 History metFORMIN HCL [Glucophage] 1,000 mg PO AC-BID 06/28/14 04/24/23 History glipiZIDE [Glucotrol] 2.5 - 5 mg PO AC-BID PRN 07/26/14 04/24/23 History amLODIPine [Norvasc] 5 mg PO HS@2300 08/06/16 04/24/23 History Magnesium 250 mg PO DAILY@0800 04/24/23 04/24/23 History Metoprolol Succinate [Toprol XL] 100 mg PO HS@2300 04/24/23 04/24/23 History Omeprazole [PriLOSEC] 20 mg PO BID@0800,2300 04/24/23 04/24/23 History Potassium Citrate [Potassium 10 meq PO DAILY@0800 04/24/2314/23 History Citrate ER] Rosuvastatin [Crestor] 20 mg PO DAILY@79904/24/23 04/24/23 History Tamsulosin [Flomax] 0.4 mg PO DAILY@79904/24/23 04/24/23 History Torsemide [Demadex] 5 mg PO DAILY@79904/24/23 04/24/23 History Zinc Gluconate [Zinc] 50 mg PO DAILY@79904/24/23 04/24/23 History cycloSPORINE 0.05% OPHTH SOLN 1 applicator BOTH EYES 04/24/23 04/24/23 History [Restasis] BID@0800,2300 Allergies Allergy/AdvReac Type Severity Reaction Status Date / Time No Known Allergies Allergy Verified 04/24/23 15:57 Physical Exam Vitals: Vital Signs Temp Pulse Pulse Resp BP BP Pulse Ox 04/24/23 18:50 98.6 F 78 16 200/98 97 04/24/23 17:32 98.1 F 63 18 211/97 97 04/24/23 16:58 78 18 162/89 98 04/24/23 12:53 98.6 F 65 18 165/94 97 Intake and Output 04/24/23 04/24/23 04/24/23 06:59 14:59 22:59 Intake Total 120 Balance 120 Intake: Oral 120 Other: Weight 92.533 kg 92.533 kg PHYSICAL EXAMINATION: Patient is lying in the bed comfortably, no acute distress, awake alert and oriented.. HEENT: Normocephalic. Neck is supple. Pupils reactive. Nostrils clear. Oral cavity is moist. Neck reveals no JVD, carotid bruits, or thyromegaly. CHEST EXAMINATION: Trachea is central. Symmetrical expansion. Lung alfaro clear to auscultation and percussion. CARDIAC: Normal S1, S2 with no gallops. Mild systolic murmur. ABDOMEN: Soft. Bowel sounds present. Nontender. No organomegaly. No abdominal bruits. Extremities: reveal no edema. No clubbing or cyanosis Neurologically awake, alert, oriented x3 with well-coordinated movements. No focal deficits noted Skin: No rash or skin lesions. Psychiatric: Coperative. Nonsuicidal, Musculoskeletal: No joint swelling or deformity. Normal range of motion. Results CBC & Chem 7: 04/24/23 13:18 04/24/23 13:18 Labs: Abnormal Lab Results - Last 24 Hours (Table) 04/24/23 Range/Units 13:18 Carbon Dioxide 21 L (22-30) mmol/L Creatinine 1.31 H (0.66-1.25) mg/dL Glucose 180 H (74-99) mg/dL Alkaline Phosphatase 34 L (38-126) U/L Thrombosis Risk Factor Assmnt - DVT/VTE Prophylaxis DVT/VTE Prophylaxis: Pharmacologic Prophylaxis ordered - Choose All That Apply Any of the Below Risk Factors Present?: No Other Risk Factors: No Each Risk Factor Represents 2 Points: Age 61-74 years Other congenital or acquired thrombophilia - If yes, enter type in comment: No Thrombosis Risk Factor Assessment Total Risk Factor Score: 2 Thrombosis Risk Factor Assessment Level: Very Low Risk Assessment and Plan Assessment: Right eye abdominal movement and blurry vision. No active symptoms at this time. Possible TIA. Hypertensive urgency Diabetes type 2 insulin-dependent with hyperglycemia on admission GERD Hyperlipidemia History of heart murmur Prior history of cardiac catheterization DVT prophylaxis with heparin subcu Plan: Patient will be continued on telemetry monitoring. Continue with aspirin and statins. Patient will be continued on home blood pressure medications and insulin Levemir and insulin sliding scale follow-up A1c level. TSH, B12, ESR and CRP levels were ordered. Neurology was consulted. MRI of the brain with and without contrast was ordered. Patient states that he is claustrophobic and is requesting Ativan prior to MRI. Ordered carotid duplex and echocardiogram. Continue to follow closely. Time with Patient: Greater than 30
[2023-04-25] MEDS: HEPARIN SODIUM,PORCINE 5,000 UNIT/ML 1 ML VIAL SQ SCH ×4 (00:15→23:11)
[2023-04-25 06:11] LABS: Glucose,Whole Blood 223 mg/dL (70-110)
[2023-04-25] MEDS: INSULIN ASPART (NovoLOG) 100 UNIT/ML VIAL SQ SCH ×4 (07:01→21:49)
[2023-04-25 07:12] LABS: Basophils % (A) 0 %; Eosinophils # (A) 0.2 k/uL (0-0.7); Eosinophils % (A) 3 %; HCT 44.6 % (39.0-53.0); HGB 14.6 gm/dL (13.0-17.5); Lymphocytes # (A) 1.5 k/uL (1.0-4.8); Lymphocytes % (A) 27 %; MCH 30.4 pg (25.0-35.0); MCHC 32.8 g/dL (31.0-37.0); MCV 92.6 fL (80.0-100.0); Mean Platelet Volume 7.7; Monocytes # (A) 0.3 k/uL (0-1.0); Monocytes % (A) 6 %; Neutrophils # (A) 3.5 k/uL (1.3-7.7); Neutrophils % (A) 62 %; Platelet Count 231 k/uL (150-450); RBC 4.81 m/uL (4.30-5.90); RDW 12.5 % (11.5-15.5); WBC 5.6 k/uL (3.8-10.6)
[2023-04-25 07:59] LABS: Erythrocyte Sedimentation Rate 2 mm/hr (0-15)
[2023-04-25] MEDS: ACETAMINOPHEN TAB 325 MG TAB PO PRN ×3 (08:45→21:49)
[2023-04-25] MEDS: ASPIRIN 81 MG PO SCH (08:46)
[2023-04-25] MEDS: FENOFIBRATE 160 MG TAB PO SCH (08:46)
[2023-04-25] MEDS: TAMSULOSIN 0.4 MG CAP.ER.24H PO SCH (08:46)
[2023-04-25] MEDS: PANTOPRAZOLE 40 MG TABLET PO SCH ×2 (08:46→21:49)
[2023-04-25] MEDS: cloNIDine HCL 0.2 MG TAB PO SCH ×3 (08:46→21:49)
[2023-04-25] MEDS: ATORVASTATIN 40 MG TAB PO SCH (08:47)
[2023-04-25] MEDS: INSULIN DETEMIR (LEVEMIR) 100 UNIT/ML SYR SQ SCH (08:47)
[2023-04-25] MEDS: cycloSPORINE 0.05% OPHTH 0.4 ML DROPERETTE BOTH EYES SCH ×2 (08:47→21:50)
[2023-04-25] MEDS: lisinopriL 20 MG TAB PO SCH ×2 (08:47→21:49)
[2023-04-25 09:43] LABS: African American GFR (CKD) 64 (>60 ml/min/1.73 sqM); Anion Gap 9 mmol/L; Blood Urea Nitrogen 20 mg/dL (9-20); C Reactive Protein <0.5 mg/dL (<1.0); Calcium 9.4 mg/dL (8.4-10.2); Carbon Dioxide 22 mmol/L (22-30); Chloride 105 mmol/L (98-107); Glucose 203 mg/dL (74-99); Non-African American GFR(CKD) 55 (>60 ml/min/1.73 sqM); Sodium 136 mmol/L (137-145)
[2023-04-25] MEDS: FUROSEMIDE 10 MG TAB PO SCH (10:22)
[2023-04-25] MEDS ORDERED: LORazepam 2 MG/ML INJ IV PRN ×2 (10:43)
[2023-04-25 11:43] LABS: Glucose,Whole Blood 145 mg/dL (70-110)
--- NOTE | 2023-04-25 12:44 | P.CNNES ---
History of Present Illness Consult date: 04/25/23 Requesting physician: Greyson Li Reason for Consult: TIA History of Present Illness: This is a 73-year-old gentleman with history of diabetes, hypertension who presents to department because of visual disturbance. He stated that he's been having visual disturbance for the past 3 weeks. He stated that initially he felt his left eye was deviated up about 3 weeks ago and then he was having right eye flutter up until 2 days ago. With these episodes he is not losing consciousness and he is aware during these episodes. And then this past Friday he noticed one eye is up on the elder I is down. He feels these episodes lasts about 4-5 seconds. He denies of any ptosis, any diplopia. He noticed that he had a mild headache over the left frontal central region at about 20 years ago. He felt the headache is through 4 out of 10. Denies any nausea vomiting. Denies any photophobia in the photophobia. He noticed the right eye is blurry. He feels when he wakes up in the morning and he denies any visual disturbance but after couple hours he that's when he notices the the visual disturbance when he rests somewhat improves. Denies any other focal weakness numbness any difficulty swallowing or getting his words out. Denies any history of stroke. He is on aspirin 81 mg daily. Some of the workup during his hospital visit consisted of: ESR is 2 TSH is 2.440 Hemoglobin A1c 7.0 Creatinine is 1.31 and a repeat is 1.28. CT of the head is reported as age-related atrophic and chronic small vessel ischemic change without acute intracranial process seen at this time. Per Zeke reviewed the CT and agree with report. Carotid duplex is reported as less than 50% stenosis of bilateral carotid bifurcation. EKG reported as sinus rhythm with first-degree AV block. Review of Systems 10 point system is reviewed and that pertinent positive and negative as per HPI Past Medical History Past Medical History: Diabetes Mellitus, GERD/Reflux, Hyperlipidemia, Hypertension, Pneumonia Additional Past Medical History / Comment(s): HEART MURMUR, palpitations History of Any Multi-Drug Resistant Organisms: None Reported Past Surgical History: Adenoidectomy, Cholecystectomy, Heart Catheterization, Hernia Repair, Tonsillectomy Additional Past Surgical History / Comment(s): rt rotator cuff surg., rt knee arthroscopy, hiatal hernia repair, rt inguinal hernia repair, hemorrhoidectomy, rhinoplasty Past Anesthesia/Blood Transfusion Reactions: No Reported Reaction, Motion Sickness Date of Last Stent Placement:: 2009 Past Psychological History: No Psychological Hx Reported Smoking Status: Never smoker Past Alcohol Use History: None Reported Past Drug Use History: None Reported - Past Family History Father Family Medical History: Myocardial Infarction (ID) Additional Family Medical History / Comment(s): at 45 due to ID Mother Family Medical History: Rheumatoid Arthritis (RA) Medications and Allergies Home Medications Medication Instructions Recorded Confirmed Type Aspirin 81 mg PO DAILY@0800 06/28/14 04/24/23 History Fenofibrate [Tricor] 160 mg PO DAILY@0800 06/28/14 04/24/23 History Insulin Glargine [Lantus] 45 unit SQ DAILY@0800 06/28/14 04/24/23 History cloNIDine HCL [Catapres] 0.2 mg PO TID@0800,1700,2300 06/28/14 04/24/23 History lisinopriL [Prinivil] 20 mg PO BID@0800,2300 06/28/14 04/24/23 History metFORMIN HCL [Glucophage] 1,000 mg PO AC-BID 06/28/14 04/24/23 History glipiZIDE [Glucotrol] 2.5 - 5 mg PO AC-BID PRN 07/26/14 04/24/23 History amLODIPine [Norvasc] 5 mg PO HS@2300 08/06/16 04/24/23 History Magnesium 250 mg PO DAILY@0804/24/23 04/24/23 History Metoprolol Succinate [Toprol XL] 100 mg PO HS@23004/24/23 04/24/23 History Omeprazole [PriLOSEC] 20 mg PO BID@0800,2300 04/24/23 04/24/23 History Potassium Citrate [Potassium 10 meq PO DAILY@79904/24/23 04/24/23 History Citrate ER] Rosuvastatin [Crestor] 20 mg PO DAILY@79904/24/23 04/24/23 History Tamsulosin [Flomax] 0.4 mg PO DAILY@0804/24/23 04/24/23 History Torsemide [Demadex] 5 mg PO DAILY@0800 04/24/23 04/24/23 History Zinc Gluconate [Zinc] 50 mg PO DAILY@0800 04/24/23 04/24/23 History cycloSPORINE 0.05% OPHTH SOLN 1 applicator BOTH EYES 04/24/23 04/24/23 History [Restasis] BID@0800,2300 Allergies Allergy/AdvReac Type Severity Reaction Status Date / Time No Known Allergies Allergy Verified 04/24/23 15:57 Physical Examination - Vital Signs Vital Signs: Vital Signs Temp Pulse Pulse Resp BP BP Pulse Ox 04/25/23 11:56 98.2 F 85 16 148/77 97 04/25/23 08:59 97.8 F 66 16 167/79 97 04/25/23 08:51 96 04/25/23 04:00 97.7 F 62 16 197/97 96 04/25/23 02:00 65 16 04/25/23 00:00 98.0 F 65 16 161/84 96 04/24/23 20:00 97.4 F L 60 16 170/88 96 04/24/23 18:50 98.6 F 78 16 200/98 97 04/24/23 17:32 98.1 F 63 18 211/97 97 04/24/23 16:58 78 18 162/89 98 04/24/23 12:53 98.6 F 65 18 165/94 97 FiO2 04/25/23 11:56 04/25/23 08:59 04/25/23 08:51 21 04/25/23 04:00 04/25/23 02:00 04/25/23 00:00 04/24/23 20:00 04/24/23 18:50 04/24/23 17:32 04/24/23 16:58 04/24/23 12:53 Intake and Output 04/24/23 04/25/23 04/25/23 22:59 06:59 14:59 Intake Total 120 605 Output Total 450 Balance 120 155 Intake: IV 5 Invasive Line 1 5 Oral 120 600 Output: Urine 450 Other: Voiding Method Toilet Toilet Toilet # Voids 1 1 Weight 92.533 kg GENERAL: The patient is lying in bed and is not in acute distress. NEUROLOGICAL: Higher mental function: The patient is awake, alert, oriented to self, place and time. Patient is following commands. No aphasia and no neglect. Cranial nerves: The pupils are round, equal and reactive to light and accommodation. Visual alfaro are full to confrontation throughout. Extraocular movement is intact no nystagmus is noted. Fixed gazed deviation for a minute did not illicit any ptosis or visual disturbance. Facial sensation is normal to touch throughout. The facial strength is normal throughout. Hearing is normal bilaterally to hand rub. Tongue is midline and moved [id number] without any difficulty. No dysarthria is noted. Shoulder shrug is normal bilaterally. Motor: Gait is normal. The strength is 5 over 5 throughout. Normal tone and bulk. Cerebellum: Normal finger to nose heel to calvo bilaterally. Sensation: Sensation is normal to touch throughout. Reflexes (right/left): 2+ throughout. Plantars are downgoing bilaterally. Results - Laboratory Findings CBC and BMP: 04/25/23 06:25 04/25/23 06:25 Abnormal Lab Findings: Abnormal Labs 04/24/23 04/24/23 04/25/23 13:18 20:12 06:09 Sodium Carbon Dioxide 21 L Creatinine 1.31 H Glucose 180 H POC Glucose (mg/dL) 158 H 223 H Hemoglobin A1c Alkaline Phosphatase 34 L 04/25/23 04/25/23 04/25/23 06:25 06:25 11:34 Sodium 136 L Carbon Dioxide Creatinine 1.28 H Glucose 203 H POC Glucose (mg/dL) 145 H Hemoglobin A1c 7.0 H Alkaline Phosphatase Assessment and Plan Assessment: This is a 73-year-old gentleman was been having visual disturbance out of both eyes in which he noticed that he feels he is having disconjugate gaze and which one eyes deviated upward otherwise that deviated the low he's having right eye flutter up until 2 days ago, blurry I over the right eye. He noticed that when he wakes up in the morning he has no visual disturbance but the head is after couple hours and somewhat is a slightly improved after some rest. Denies of any diplopia or ptosis. Denies of any dysphagia or dysphonia or any focal weakness. 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 I doubt Stroke or TIA History of diabetes mellitus History of hypertension next 1 history of hypercholesteremia Plan: I ordered MRI the brain to rule out any underlying mass or stroke. I ordered CRP, vitamin B12. Ordered acetylcholine receptor antibody, musk antibody and the result for this will take time. 2-D echo and lipid panel was ordered and is pending Patient is on his home medication of aspirin 81 mg. Is on Lipitor 40 mg daily. Continue neuro checks PT OT and MOLD INJECTOR are consulted Cardiac monitoring We'll defer the rest of the medical management to primary team Upon discharge recommend the patient to follow-up with a neurologist as an outpatient within 1-2 weeks. For DVT prophylaxis the patient is on subcu heparin 5000 units every hours The plan discussed with the patient and his nurse. Thank you for the consultation Time with Patient: Greater than 30
[2023-04-25 16:22] LABS: Chol/HDL Ratio 4.11 Ratio; LDL Cholesterol,Calculated 44.2 mg/dL (0.0-131.0)
[2023-04-25 16:32] LABS: Vitamin B12 <150.0 pg/mL (200.0-944.0)
[2023-04-25 16:45] LABS: Glucose,Whole Blood 247 mg/dL (70-110)
--- NOTE | 2023-04-25 17:46 | CA ---
Transthoracic Echo Report Name: En Garza Age: 73 Gender: M : 1950 Exam Date: 04/25/2023 08:58 Exam Location: [facility] Ht (in): 69 Wt (lb): 204 Ordering Physician: Gilles Wisdom MD Attending/Referring Phys: Environmental Engineering Assistant Jose Elias Cano Procedure CPT: Indications: stroke Cardiac Hx: Technical Quality: Fair Contrast 1: Total Dose (mL): Contrast 2: Total Dose (mL): MEASUREMENTS (Male / Female) Normal Values 2D ECHO LV Diastolic Diameter PLAX 4.6 cm 4.2 - 5.9 / 3.9 - 5.3 cm LV Systolic Diameter PLAX 3.0 cm IVS Diastolic Thickness 1.0 cm 0.6 - 1.0 / 0.6 - 0.9 cm LVPW Diastolic Thickness 1.2 cm 0.6 - 1.0 / 0.6 - 0.9 cm LV Relative Wall Thickness 0.5 RV Internal Dim ED PLAX 3.4 cm LVOT Diameter 2.3 cm Aortic Root Diameter 2.8 cm LA Systolic Diameter LX 2.3 cm 3.0 - 4.0 / 2.7 - 3.8 cm LV Diastolic Volume MOD BP 50.6 cm??? 67 - 155 / 56 - 104 cm??? LV Systolic Volume MOD BP 18.1 cm??? 22 - 58 / 19 - 49 cm??? LV Ejection Fraction MOD BP 64.2 % >= 55 % LV Cardiac Index MOD BP 998.9 cm???/min???m??? LV Diastolic Volume MOD 4C 46.4 cm??? LV Systolic Volume MOD 4C 19.0 cm??? LV Ejection Fraction MOD 4C 58.9 % LV Cardiac Index MOD 4C 840.2 cm???/min???m??? LV Diastolic Length 4C 7.2 cm LV Systolic Length 4C 6.3 cm LV Diastolic Volume MOD 2C 54.4 cm??? LV Systolic Volume MOD 2C 17.3 cm??? LV Ejection Fraction MOD 2C 68.3 % LV Cardiac Index MOD 2C 1142.4 cm???/min???m??? LV Diastolic Length 2C 7.4 cm LV Systolic Length 2C 6.4 cm LA Volume 52.7 cm??? 18 - 58 / 22 - 52 cm??? Ascending Aorta Diameter 2.3 cm DOPPLER AV Peak Velocity 179.5 cm/s AV Peak Gradient 12.9 mmHg AV Mean Velocity 125.4 cm/s AV Mean Gradient 7.2 mmHg AV Velocity Time Integral 39.5 cm LVOT Peak Velocity 104.7 cm/s LVOT Peak Gradient 4.4 mmHg LVOT Velocity Time Integral 22.1 cm LVOT Stroke Volume 92.6 cm??? LVOT Stroke Volume Index 44.5 ml/m??? LVOT Cardiac Index 2847.8 cm???/min???m??? AV Area Cont Eq vti 2.3 cm??? AV Area Cont Eq pk 2.4 cm??? MV Peak Velocity 89.5 cm/s MV Peak Gradient 3.2 mmHg MV Mean Velocity 44.2 cm/s MV Mean Gradient 1.0 mmHg MV Velocity Time Integral 32.0 cm Mitral E Point Velocity 66.8 cm/s Mitral A Point Velocity 86.7 cm/s Mitral E to A Ratio 0.8 MV Deceleration Time 213.1 ms MV E' Velocity 4.9 cm/s Mitral E to MV E' Ratio 13.5 TR Peak Velocity 197.5 cm/s TR Peak Gradient 15.6 mmHg Right Ventricular Systolic Press 20.6 mmHg PV Peak Velocity 167.5 cm/s PV Peak Gradient 11.2 mmHg FINDINGS Left Ventricle Normal LV size and wall thickness. Left ventricular ejection fraction is estimated at 55-60 %.normal left ventricular wall motion. Normal left ventricular diastolic filling pattern. Right Ventricle Normal right ventricular size. Right Atrium Normal right atrial size. Left Atrium Normal left atrial size. Mitral Valve Structurally normal mitral valve. No mitral stenosis or regurgitation.mitral annular calcification. Aortic Valve Trileaflet aortic valve. Mild AV sclerosis/calcification. No aortic valve stenosis or regurgitation. Tricuspid Valve Structurally normal tricuspid valve. Mild TR. Pulmonic Valve Pulmonic valve not well visualized. Trace pulmonic regurgitation. Pericardium Normal pericardium. Aorta Normal size aortic root and proximal ascending aorta. CONCLUSIONS 1. Normal left ventricle size and systolic function 2. Mild tricuspid regurgitation with no evidence of pulmonary hypertension Previewed by: Dr. Kanchan Adams MD (Electronically Signed) Final Date: 25 April 2023 17:45
[2023-04-25 20:00] LABS: Glucose,Whole Blood 293 mg/dL (70-110)
[2023-04-25] MEDS: METOPROLOL SUCCINATE (ER) 100 MG TAB.ER.24H PO SCH (21:49)
[2023-04-25] MEDS: amLODIPine 5 MG TAB PO SCH (21:49)
--- NOTE | 2023-04-25 22:13 | P.PN ---
Subjective Progress Note Date: 04/25/23 Patient is a 73-year-old male with a known history of hypertension, hyperlipidemia, diabetes type 2 insulin-dependent, prior history of cardiac catheterization presents to ER with complaints of visual disturbance. Patient was seen by PCP yesterday and was advised come to ER. Patient states that about 2 days ago his eye he was acting differently and was bouncing up and down for about 4 to 5 seconds. Patient also complains of right eye fluttering since then. 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 Patient contacted his PCP and was recommended to go to ER to be evaluated by neurology. Patient states that 3 weeks ago his friends noticed that left eye pointing upward. Since then he has been having blurry vision. Patient states that he has dry eyes and takes ocular lubricants. Complains of mild headache in the center of the head. Denies any dizziness or lightheadedness. No complaints of chest pain or shortness of breath. No palpitations. No leg swelling. Denies any focal weakness. No numbness or tingling in the legs or hands. On admission blood pressure 162/94 pulse is 65 respiration 18 and pulse ox 97% on room air. CT head showed age-related atrophy and chronic small vessel ischemic changes without acute intracranial process. EKG showed sinus rhythm with first-degree AV block. Laboratory pressure WBC 8.0 hemoglobin 15.5 and platelets 258 Sodium 137 potassium 4.9 chloride 106 bicarb is 21 BUN 20 and creatinine 1.31. Blood sugar 180 Liver enzymes showed AST 22 ALT 21 alk phos 34 and CK 62. 04/25/2023 Patient is currently regular. Awake alert and oriented x3. No complaints of chest pain or shortness of breath. No palpitations. Blurry vision is almost resolved. No complaints of visual disturbance overnight. No headache or dizziness or lightheadedness. Patient underwent stroke work-up including MRI of the brain which is supposed to be done today. Neurology is on board. Laboratory data showed sodium 136 potassium 4.0 chloride 105 bicarb is 22 BUN 20 and creatinine 1.28 and blood sugar is 203. A1c 7.0 LDL 44.2 and triglycerides 218. Vitamin B12 is less than 150 and TSH 2.44 Carotid duplex showed bilateral less than 50% stenosis at the bifurcation. 2D echocardiogram showed normal left ventricular size and systolic function. Mild tricuspid regurgitation with no evidence of pulmonary hypertension. Current medications reviewed. Objective - Vital Signs Vital signs: Vital Signs Temp 98.0 F 04/25/23 16:50 Pulse 59 L 04/25/23 16:50 Resp 16 04/25/23 16:50 BP 167/85 04/25/23 16:50 Pulse Ox 96 04/25/23 16:50 FiO2 21 04/25/23 08:51 Intake & Output 04/25/23 04/25/23 04/26/23 06:59 18:59 06:59 Intake Total 1185 Output Total 450 Balance 735 Intake: IV 5 Invasive Line 1 5 Oral 1180 Output: Urine 450 Other: Voiding Method Toilet Toilet # Voids 1 2 - Exam PHYSICAL EXAMINATION: Patient is lying in the bed comfortably, no acute distress, awake alert and oriented.. HEENT: Normocephalic. Neck is supple. Pupils reactive. Nostrils clear. Oral cavity is moist. Neck reveals no JVD, carotid bruits, or thyromegaly. CHEST EXAMINATION: Trachea is central. Symmetrical expansion. Lung alfaro clear to auscultation and percussion. CARDIAC: Normal S1, S2 with no gallops. Mild systolic murmur. ABDOMEN: Soft. Bowel sounds present. Nontender. No organomegaly. No abdominal bruits. Extremities: reveal no edema. No clubbing or cyanosis Neurologically awake, alert, oriented x3 with well-coordinated movements. No focal deficits noted Skin: No rash or skin lesions. Psychiatric: Coperative. Nonsuicidal, Musculoskeletal: No joint swelling or deformity. Normal range of motion. - Labs CBC & Chem 7: 04/25/23 06:25 04/25/23 06:25 Labs: Abnormal Lab Results - Last 24 Hours (Table) 04/25/23 04/25/23 04/25/23 Range/Units 06:09 06:25 06:25 Sodium 136 L (137-145) mmol/L Creatinine 1.28 H (0.66-1.25) mg/dL Glucose 203 H (74-99) mg/dL POC Glucose (mg/dL) 223 H (70-110) mg/dL Hemoglobin A1c 7.0 H (<=6.0) % Triglycerides 218.00 H (0.00-149.00) mg/dL VLDL Cholesterol, Calc 43.60 H (5.00-40.00) mg/dL HDL Cholesterol 28.20 L (40.00-60.00) mg/dL Vitamin B12 <150.0 L (200.0-944.0) pg/mL 04/25/23 04/25/23 04/25/23 Range/Units 11:34 16:33 19:58 Sodium (137-145) mmol/L Creatinine (0.66-1.25) mg/dL Glucose (74-99) mg/dL POC Glucose (mg/dL) 145 H 247 H 293 H (70-110) mg/dL Hemoglobin A1c (<=6.0) % Triglycerides (0.00-149.00) mg/dL VLDL Cholesterol, Calc (5.00-40.00) mg/dL HDL Cholesterol (40.00-60.00) mg/dL Vitamin B12 (200.0-944.0) pg/mL Assessment and Plan Assessment: Right eye abdominal movement and blurry vision. No active symptoms at this time. Possible TIA. Vitamin B12 deficiency Hypertensive urgency on admission Diabetes type 2 insulin-dependent with hyperglycemia on admission GERD Hyperlipidemia History of heart murmur Prior history of cardiac catheterization DVT prophylaxis with heparin subcu Plan: Patient will be continued on telemetry monitoring. Continue with aspirin and statins. Patient will be continued on home blood pressure medications and insulin Levemir and insulin sliding scale follow-up A1c level. TSH, B12, ESR and CRP levels were ordered. Neurology is on board. MRI of the brain with and without contrast was ordered. Patient states that he is claustrophobic and is requesting Ativan prior to MRI. .Carotid duplex showed bilateral less than 50% stenosis at the bifurcation. 2D echocardiogram showed normal left ventricular size and systolic function. Mild tricuspid regurgitation with no evidence of pulmonary hypertension. Started on B12 replacement. Continue to follow closely. Time with Patient: Greater than 30
[2023-04-25] MEDS ORDERED: CYANOCOBALAMIN 1,000 MCG/ML 1 ML VIAL IM ONE (22:15)
[2023-04-26 06:11] LABS: Glucose,Whole Blood 174 mg/dL (70-110)
[2023-04-26] MEDS: INSULIN ASPART (NovoLOG) 100 UNIT/ML VIAL SQ SCH ×3 (06:31→12:34)
[2023-04-26 08:24] LABS: African American GFR (CKD) 69 (>60 ml/min/1.73 sqM); Anion Gap 8 mmol/L; Blood Urea Nitrogen 19 mg/dL (9-20); Calcium 9.1 mg/dL (8.4-10.2); Carbon Dioxide 23 mmol/L (22-30); Chloride 108 mmol/L (98-107); Glucose 170 mg/dL (74-99); Non-African American GFR(CKD) 59 (>60 ml/min/1.73 sqM); Potassium 4.4 mmol/L (3.5-5.1); Sodium 139 mmol/L (137-145)
[2023-04-26] MEDS ORDERED: CYANOCOBALAMIN 500 MCG TAB PO SCH (09:00)
[2023-04-26] MEDS: cycloSPORINE 0.05% OPHTH 0.4 ML DROPERETTE BOTH EYES SCH (09:20)
[2023-04-26] MEDS: PANTOPRAZOLE 40 MG TABLET PO SCH (09:23)
[2023-04-26] MEDS: cloNIDine HCL 0.2 MG TAB PO SCH ×2 (09:23→12:34)
[2023-04-26] MEDS: ATORVASTATIN 40 MG TAB PO SCH (09:23)
[2023-04-26] MEDS: ASPIRIN 81 MG PO SCH (09:23)
[2023-04-26] MEDS: TAMSULOSIN 0.4 MG CAP.ER.24H PO SCH (09:24)
[2023-04-26] MEDS: FENOFIBRATE 160 MG TAB PO SCH (09:24)
[2023-04-26] MEDS: lisinopriL 20 MG TAB PO SCH (09:24)
[2023-04-26] MEDS: FUROSEMIDE 10 MG TAB PO SCH (09:24)
[2023-04-26] MEDS: HEPARIN SODIUM,PORCINE 5,000 UNIT/ML 1 ML VIAL SQ SCH ×2 (09:24→12:34)
[2023-04-26] MEDS ORDERED: CYANOCOBALAMIN 1,000 MCG/ML 1 ML VIAL IM ONE (09:32)
[2023-04-26] MEDS: INSULIN DETEMIR (LEVEMIR) 100 UNIT/ML SYR SQ SCH (09:33)
--- NOTE | 2023-04-26 11:51 | P.PN ---
Subjective Progress Note Date: 04/26/23 I am following-up with patient and he states he has not had any further visual issues. It seems he was found to have Vitamin B12 deficiency and was given IM B12 1000mcg once. Denies of any new neurological issues. Objective - Vital Signs Vital signs: Vital Signs Temp 97.8 F 04/26/23 04:00 Pulse 64 04/26/23 04:00 Resp 19 04/26/23 04:00 BP 167/91 04/26/23 04:00 Pulse Ox 97 04/26/23 08:20 FiO2 21 04/25/23 08:51 Intake & Output 04/25/23 04/26/23 04/26/23 18:59 06:59 18:59 Intake Total 1185 480 Output Total 450 Balance 735 480 Intake: IV 5 Invasive Line 1 5 Oral 1180 480 Output: Urine 450 Other: Voiding Method Toilet Toilet # Voids 2 2 - Exam GENERAL: The patient is lying in bed and is not in acute distress. NEUROLOGICAL: Higher mental function: The patient is awake, alert, oriented to self, place and time. Patient is following commands. No aphasia and no neglect. Cranial nerves: The pupils are round, equal and reactive to light and accommodation. Visual alfaro are full to confrontation throughout. Extraocular movement is intact no nystagmus is noted. Fixed gazed deviation for a minute did not illicit any ptosis or visual disturbance. Facial sensation is normal to touch throughout. The facial strength is normal throughout. Hearing is normal bilaterally to hand rub. Tongue is midline and moved [id number] without any difficulty. No dysarthria is noted. Shoulder shrug is normal bilaterally. Motor: Gait is normal. The strength is 5 over 5 throughout. Normal tone and bulk. Cerebellum: Normal finger to nose heel to calvo bilaterally. Sensation: Sensation is normal to touch throughout. Reflexes (right/left): 2+ throughout. Plantars are downgoing bilaterally. Some of the workup during his hospital visit consisted of: ESR is 2 TSH is 2.440 Hemoglobin A1c 7.0 Vitamin B-12 is less than 150. CRP less than 0.5 Lipid panels triglyceride of 218, cholesterol is under 16, LDLs 44 and HDL is 28 Creatinine is 1.31 and a repeat is 1.28. CT of the head is reported as age-related atrophic and chronic small vessel ischemic change without acute intracranial process seen at this time. Jonny Alanis reviewed the CT and agree with report. Carotid duplex is reported as less than 50% stenosis of bilateral carotid bifurcation. EKG reported as sinus rhythm with first-degree AV block. 2-D echo was reported as normal left ventricular size and systolic function. Mild tricuspid regurgitation with no evidence of pulmonary hypertension. - Labs CBC & Chem 7: 04/25/23 06:25 04/26/23 07:01 Labs: Abnormal Lab Results - Last 24 Hours (Table) 04/25/23 04/25/23 04/25/23 Range/Units 06:25 16:33 19:58 Chloride (98-107) mmol/L Glucose (74-99) mg/dL POC Glucose (mg/dL) 247 H 293 H (70-110) mg/dL Triglycerides 218.00 H (0.00-149.00) mg/dL VLDL Cholesterol, Calc 43.60 H (5.00-40.00) mg/dL HDL Cholesterol 28.20 L (40.00-60.00) mg/dL Vitamin B12 <150.0 L (200.0-944.0) pg/mL 04/26/23 04/26/23 Range/Units 06:10 07:01 Chloride 108 H (98-107) mmol/L Glucose 170 H (74-99) mg/dL POC Glucose (mg/dL) 174 H (70-110) mg/dL Triglycerides (0.00-149.00) mg/dL VLDL Cholesterol, Calc (5.00-40.00) mg/dL HDL Cholesterol (40.00-60.00) mg/dL Vitamin B12 (200.0-944.0) pg/mL Assessment and Plan Assessment: This is a 73-year-old gentleman was been having visual disturbance out of both eyes in which he noticed that he feels he is having disconjugate gaze and which one eyes deviated upward otherwise that deviated the low he's having right eye flutter up until 2 days ago, blurry I over the right eye. He noticed that when he wakes up in the morning he has no visual disturbance but the head is after couple hours and somewhat is a slightly improved after some rest. Denies of any diplopia or ptosis. Denies of any dysphagia or dysphonia or any focal weakness. 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 I doubt Stroke or TIA--no further episodes in our facility Vitamin B12 deficiency: Unsure exact cause and patient states that his diet is good so I'll not sure if he is having absorption problem. History of diabetes mellitus History of hypertension next 1 history of hypercholesteremia Plan: Pending MRI the brain to rule out any underlying mass or stroke which I doubt. There is no availability for today and next availability as inpatient is this [place] . Patient does not want to stay until Friday and I feel this could be done as an outpatient since I doubt this is a stroke or any mass. Regarding the vitamin B12 deficiency he was given vitamin B12 1000 g IM once yesterday and I gave him another one today and after that PO. Recommend further evaluation of the cause of the vitamin B12 deficiency since the patient states that he has good intake of meat. I'll not sure if he is having malabsorption problems. We'll defer the management to the primary team and possible GI. Ordered acetylcholine receptor antibody, musk antibody and the result for this will take time. Patient is on his home medication of aspirin 81 mg. Is on Lipitor 40 mg daily. Continue neuro checks PT OT and GOLD LETTERER are consulted Cardiac monitoring We'll defer the rest of the medical management to primary team Upon discharge recommend the patient to follow-up with a neurologist as an outpatient within 1-2 weeks. For DVT prophylaxis the patient is on subcu heparin 5000 units every hours The plan discussed with the patient and his nurse. Otherwise no additional neurological workup is needed. Time with Patient: Less than 30
[2023-04-26 12:18] VITALS: BP 155/92; PULSE 63; RESP 16; TEMP 98
[2023-04-26 12:35] LABS: Glucose,Whole Blood 232 mg/dL (70-110)
[2023-04-27] MEDS ORDERED: CYANOCOBALAMIN 500 MCG TAB PO SCH (09:00)
== END 2023-04-26 13:34 | disposition home or self-care (01) ==
LOC: EC 11:33 → 3SCARD 15:53
PROVIDERS: ADMIT Internal Medicine; ATTEND Internal Medicine
DX: H53.8 Other visual disturbances (principal); I16.0 Hypertensive urgency; E11.65 Type 2 diabetes mellitus with hyperglycemia; E78.00 Pure hypercholesterolemia, unspecified; I10 Essential (primary) hypertension; K21.9 Gastro-esophageal reflux disease without esophagitis; E53.8 Deficiency of other specified B group vitamins; Z79.82 Long term (current) use of aspirin; Z79.899 Other long term (current) drug therapy; Z79.4 Long term (current) use of insulin; Z79.84 Long term (current) use of oral hypoglycemic drugs
CPT/HCPCS: 96372 ×3; 99285; 36415; 94760 ×2; 93005; 93306; 97161; 97165; 92610; 92523; 83519; 80061; 80053; 80048 ×2; 85652; 84443; 82607; 82550; 85025 ×2; 85610; 85730; 86140; 83036; 93880; 70450; G0378 ×3; J3420 ×2; J1644 ×2

== ENCOUNTER → 2023-04-29 | Outpatient (CLI) | payer MEDICARE ==
--- NOTE | 2023-05-01 15:36 | MR ---
EXAMINATION TYPE: MR brain wo/w con DATE OF EXAM: 04/29/2023 COMPARISON: CT brain 04/24/2023 HISTORY: Post In Patient stay for neuro deficit. CONTRAST: Performed utilizing 9 mL intravenous Gadavist gadolinium contrast. TECHNIQUE: Multiplanar, multiecho imaging on a 3.0 Mitzi magnet is performed through the brain. Stud y is performed within 24 hours of arrival to the hospital. The craniovertebral junction is normal. The pituitary is normal. Diffusion-weighted imaging is performed. No abnormal hyperintensity is present to suggest an acute i ntracranial infarct or acute ischemic change. Signal through the brain appears normal. Ventricles and sulci are appropriate for the patient age. No abnormal enhancement is evident. Paranasal sinuses and mastoid air cells appear clear. Pacchionian granulation may be within the right frontal calvarium. IMPRESSION: 1. No acute intracranial processes pre and postcontrast MRI brain.
== END | disposition home or self-care (01) ==
LOC: RADMRIMAIN 10:58
PROVIDERS: ATTEND Internal Medicine Geriatric Medicine
DX: G45.9 Transient cerebral ischemic attack, unspecified (principal)
CPT/HCPCS: 70553; A9585

== ENCOUNTER → 2023-06-06 | Outpatient (CLI) | payer MEDICARE ==
--- NOTE | 2023-06-06 08:08 | US ---
EXAMINATION TYPE: US renal artery duplex complete DATE OF EXAM: 06/06/2023 COMPARISON: US 's dated 04/27/2019,and 12/27/2014. CT dated 01/09/2015. CLINICAL INDICATION: Male, 73 years old with history of I70.1 ATHEROSCLEROSIS OF RENAL ARTERY, I25.10 ; MEASUREMENTS: RENAL SIZE: Rt Kidney: 11.5 x 4.9 x 4.7 cm Lt Kidney: 11.2 x 5.3 x 5.7 cm RESISTANCE INDEX Right: 0.61 Left: 0.69 RA/AO RATIO (< 3.5 ) Right: 2.1 Left: 1.3 RA VELOCITY ( < 180 cm/s) Right: 204 Left: 123 Aorta not visualized proximally due to overlying bowel gas, otherwise wnl. Right renal lesion measuri ng 1.7 x 1.6 x 1.5 cm, unable to prove cystic by ultrasound. Left renal lesion measuring 1.6 x 1.1 x1 .1 cm, unable to prove cystic by ultrasound. Mildly elevated right renal artery proximally, consider follow up with CTA. Normal upstroke on interlobar arteries and normal RI's. IMPRESSION: 1. No abnormal renal artery to aortic ratios to suggest renal artery stenosis however there is mildly elevated right renal artery peak systolic velocity proximally. Consider further evaluation with CTA abdomen. 2. Bilateral hypoechoic renal lesions which may represent cysts. This can be further evaluated on rec ommendation #1.
== END | disposition home or self-care (01) ==
LOC: RADUSWWP 06:42
PROVIDERS: ATTEND Internal Medicine Interventional Cardiology
DX: I70.1 Atherosclerosis of renal artery (principal); I25.10 Atherosclerotic heart disease of native coronary artery without angina pectoris; N28.89 Other specified disorders of kidney and ureter
CPT/HCPCS: 93975

== ENCOUNTER → 2023-07-01 | Outpatient (CLI) | payer MEDICARE ==
--- NOTE | 2023-07-01 22:36 | MR ---
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 TECHNIQUE: Multiplanar multi-sequence imaging was performed without contrast. Multi planar, T2-weigh anne imaging with and without fat saturation and chemical shift imaging was performed of the abdomen. 3D and MIP images were created on a separate work station. No Gadolinium given. IV Contrast: 9 cc Gadobutrol FINDINGS: LOWER CHEST: No gross irregularity. ABDOMEN Liver: No evidence for hepatic steatosis or cirrhosis. Gallbladder and Bile ducts: No evidence for ductal dilation, or biliary stricture or evidence of chol edocholithiasis. Pancreas: No ductal dilation. No evidence for solid mass. Spleen: Normal for size. Adrenal glands: Unremarkable. Kidneys: No evidence for obstructive uropathy. No suspicious renal masses. Stomach and Bowel: No evidence for bowel wall thickening or evidence for obstruction. Moderate hiatal hernia. Peritoneum: No evidence of pneumoperitoneum or free fluid. Vasculature: Motion limited evaluation No aortic aneurysm. The visualized renal arteries appear paten t. The origins not demonstrate significant stenosis. They appear patent. The remainder of the vascula ture of the abdomen appears patent. Musculoskeletal: The osseous structures appear intact. Lymph Nodes: No gross evidence for lymphadenopathy. Abdominal wall: Unremarkable. IMPRESSION: 1. Motion limited exam, No evidence for renal artery stenosis., Findings similar to 06/06/2023 ultra sound. 2. Moderate hiatal hernia.
== END | disposition home or self-care (01) ==
LOC: RADMRIMAIN 17:26
PROVIDERS: ATTEND Internal Medicine Interventional Cardiology
DX: I36.1 Nonrheumatic tricuspid (valve) insufficiency (principal); K44.9 Diaphragmatic hernia without obstruction or gangrene; I1A.0 Resistant hypertension
CPT/HCPCS: C8902; A9585; 74185

== ENCOUNTER 2023-07-12 11:01 | Emergency (ER) | payer MEDICARE ==
[2023-07-12 11:16] VITALS: RESP 18
--- NOTE | 2023-07-12 11:43 | ED ---
General Adult HPI - General Chief complaint: Recheck/Abnormal Lab/Rx Stated complaint: High blood pressure Time Seen by Provider: 07/12/23 11:10 Source: patient, RN notes reviewed, old records reviewed Mode of arrival: ambulatory Limitations: no limitations - History of Present Illness Initial comments: This is a 73-year-old male who presents emergency Department complaining that he woke up this morning and his blood pressure was 213 systolic and he had a very bad headache. Patient states the pressures come down since she's taken 3 hydralazine which she can take up to 6 times a day. Patient states that the headache is much improved but is still exists. Patient denies any chest pain states he felt a little for breath this morning but no longer. Patient denies any lightheadedness or dizziness. Patient denies any focal deficits such as numbness or weakness. Patient denies any abdominal pain patient denies nausea vomiting diarrhea - Related Data Home Medications Medication Instructions Recorded Confirmed Aspirin 81 mg PO DAILY@0800 06/28/14 04/24/23 Fenofibrate [Lofibra] 160 mg PO DAILY@0800 06/28/14 04/24/23 Insulin Glargine [Lantus Vial] 45 unit SQ DAILY@0800 06/28/14 04/24/23 cloNIDine HCL [Catapres] 0.2 mg PO TID@0800,1700,2300 06/28/14 04/24/23 lisinopriL [Prinivil] 20 mg PO BID@0800,2300 06/28/14 04/24/23 metFORMIN HCL [Glucophage] 1,000 mg PO AC-BID 06/28/14 04/24/23 glipiZIDE [Glucotrol] 2.5 - 5 mg PO AC-BID PRN 07/26/14 04/24/23 amLODIPine [Norvasc] 5 mg PO HS@2300 08/06/16 04/24/23 Magnesium 250 mg PO DAILY@0800 04/24/23 04/24/23 Metoprolol Succinate [Toprol XL] 100 mg PO HS@2300 04/24/23 04/24/23 Omeprazole [PriLOSEC] 20 mg PO BID@0800,2300 04/24/23 04/24/23 Potassium Citrate [Potassium 10 meq PO DAILY@0800 04/24/23 04/24/23 Citrate ER] Rosuvastatin [Crestor] 20 mg PO DAILY@0800 04/24/23 04/24/23 Tamsulosin [Flomax] 0.4 mg PO DAILY@0800 04/24/23 04/24/23 Torsemide [Demadex] 5 mg PO DAILY@0800 04/24/23 04/24/23 Zinc Gluconate [Zinc] 50 mg PO DAILY@0800 04/24/23 04/24/23 cycloSPORINE 0.05% OPHTH SOLN 1 applicator BOTH EYES 04/24/23 04/24/23 [Restasis] BID@0800,2300 Previous Rx's Medication Instructions Recorded Cyanocobalamin [Vitamin B-12] 1,000 mcg PO DAILY #30 tab 04/26/23 Allergies Allergy/AdvReac Type Severity Reaction Status Date / Time No Known Allergies Allergy Verified 07/12/23 11:11 Review of Systems ROS Statement: Those systems with pertinent positive or pertinent negative responses have been documented in the HPI. ROS Other: All systems not noted in ROS Statement are negative. Past Medical History Past Medical History: Diabetes Mellitus, GERD/Reflux, Hyperlipidemia, Hypertension, Pneumonia Additional Past Medical History / Comment(s): HEART MURMUR, palpitations History of Any Multi-Drug Resistant Organisms: None Reported Past Surgical History: Adenoidectomy, Cholecystectomy, Heart Catheterization, Hernia Repair, Tonsillectomy Additional Past Surgical History / Comment(s): rt rotator cuff surg., rt knee arthroscopy, hiatal hernia repair, rt inguinal hernia repair, hemorrhoidectomy, rhinoplasty Past Anesthesia/Blood Transfusion Reactions: No Reported Reaction, Motion Sickness Date of Last Stent Placement:: 2009 Past Psychological History: No Psychological Hx Reported Smoking Status: Never smoker Past Alcohol Use History: None Reported Past Drug Use History: None Reported - Past Family History Father Family Medical History: Myocardial Infarction ([place]) Additional Family Medical History / Comment(s): at 45 due to [place] Mother Family Medical History: Rheumatoid Arthritis ([place]) General Exam - General Exam Comments Initial Comments: GENERAL: Patient is well-developed and well-nourished. Patient is nontoxic and well- hydrated and is in mild distress. ENT: Neck is soft and supple. No significant lymphadenopathy is noted. Oropharynx is clear. Moist mucous membranes. Neck has full range of motion without eliciting any pain. EYES: The sclera were anicteric and conjunctiva were pink and moist. Extraocular movements were intact and pupils were equal round and reactive to light. Eyelids were unremarkable. PULMONARY: Unlabored respirations. Good breath sounds bilaterally. No audible rales rhonchi or wheezing was noted. CARDIOVASCULAR: There is a regular rate and rhythm without any murmurs gallops or rubs. ABDOMEN: Soft and nontender with normal bowel sounds. SKIN: Skin is clear with no lesions or rashes and otherwise unremarkable. NEUROLOGIC: Patient is alert and oriented x3. Cranial nerves II through XII are grossly intact. Motor and sensory are also intact. Normal speech, volume and content. Symmetrical smile. MUSCULOSKELETAL: Normal extremities with adequate strength and full range of motion. LYMPHATICS: No significant lymphadenopathy is noted PSYCHIATRIC: Normal psychiatric evaluation. Limitations: no limitations Course Vital Signs 07/12/23 11:07 Temperature 98 F Pulse Rate 90 Respiratory 18 Rate Blood Pressure 163/83 O2 Sat by Pulse 95 Oximetry Medical Decision Making - Medical Decision Making EKG is interpreted by myself. EKG shows a sinus rhythm at 84 bpm WV interval is 214 QRS is 88 QT interval 382 QTC is 423. EKG shows no ST segment elevation or depression - Lab Data Result diagrams: 07/12/23 11:37 07/12/23 11:37 Lab Results 07/12/23 07/12/23 07/12/23 Range/Units 11:37 11:37 11:37 WBC 8.4 (3.8-10.6) k/uL RBC 5.31 (4.30-5.90) m/uL Hgb 16.6 (13.0-17.5) gm/dL Hct 48.9 (39.0-53.0) % MCV 92.0 (80.0-100.0) fL MCH 31.2 (25.0-35.0) pg MCHC 33.9 (31.0-37.0) g/dL RDW 12.5 (11.5-15.5) % Plt Count 294 (150-450) k/uL MPV 7.6 Neutrophils % 68 % Lymphocytes % 22 % Monocytes % 6 % Eosinophils % 2 % Basophils % 0 % Neutrophils # 5.7 (1.3-7.7) k/uL Lymphocytes # 1.9 (1.0-4.8) k/uL Monocytes # 0.5 (0-1.0) k/uL Eosinophils # 0.2 (0-0.7) k/uL Basophils # 0.0 (0-0.2) k/uL PT 10.6 (10.0-12.5) sec INR 1.0 (<1.2) APTT 25.7 (22.0-30.0) sec Sodium 139 (137-145) mmol/L Potassium 4.4 (3.5-5.1) mmol/L Chloride 106 (98-107) mmol/L Carbon Dioxide 16 L (22-30) mmol/L Anion Gap 17 mmol/L BUN 21 H (9-20) mg/dL Creatinine 1.49 H (0.66-1.25) mg/dL Est GFR (CKD-EPI)AfAm 53 (>60 ml/min/1.73 sqM) Est GFR (CKD-EPI)NonAf 46 (>60 ml/min/1.73 sqM) Glucose 196 H (74-99) mg/dL Calcium 9.9 (8.4-10.2) mg/dL Magnesium 2.0 (1.6-2.3) mg/dL Total Bilirubin 0.8 (0.2-1.3) mg/dL AST 26 (17-59) U/L ALT 22 (4-49) U/L Alkaline Phosphatase 41 (38-126) U/L Troponin I (0.000-0.034) ng/mL Total Protein 7.8 (6.3-8.2) g/dL Albumin 4.8 (3.5-5.0) g/dL 07/12/23 Range/Units 11:37 WBC (3.8-10.6) k/uL RBC (4.30-5.90) m/uL Hgb (13.0-17.5) gm/dL Hct (39.0-53.0) % MCV (80.0-100.0) fL MCH (25.0-35.0) pg MCHC (31.0-37.0) g/dL RDW (11.5-15.5) % Plt Count (150-450) k/uL MPV Neutrophils % % Lymphocytes % % Monocytes % % Eosinophils % % Basophils % % Neutrophils # (1.3-7.7) k/uL Lymphocytes # (1.0-4.8) k/uL Monocytes # (0-1.0) k/uL Eosinophils # (0-0.7) k/uL Basophils # (0-0.2) k/uL PT (10.0-12.5) sec INR (<1.2) APTT (22.0-30.0) sec Sodium (137-145) mmol/L Potassium (3.5-5.1) mmol/L Chloride (98-107) mmol/L Carbon Dioxide (22-30) mmol/L Anion Gap mmol/L BUN (9-20) mg/dL Creatinine (0.66-1.25) mg/dL Est GFR (CKD-EPI)AfAm (>60 ml/min/1.73 sqM) Est GFR (CKD-EPI)NonAf (>60 ml/min/1.73 sqM) Glucose (74-99) mg/dL Calcium (8.4-10.2) mg/dL Magnesium (1.6-2.3) mg/dL Total Bilirubin (0.2-1.3) mg/dL AST (17-59) U/L ALT (4-49) U/L Alkaline Phosphatase (38-126) U/L Troponin I 0.013 (0.000-0.034) ng/mL Total Protein (6.3-8.2) g/dL Albumin (3.5-5.0) g/dL Disposition Clinical Impression: Hypertensive urgency Disposition: HOME SELF-CARE Instructions (If sedation given, give patient instructions): Hypertension (ED) Additional Instructions: Patient should start taking hydralazine 50 mg every 8 hours Is patient prescribed a controlled substance at d/c from ED?: No Referrals: Alex Timmons MD [Primary Care Provider] - 1-2 days Time of Disposition: 13:02
[2023-07-12] MEDS ORDERED: ACETAMINOPHEN TAB 500 MG TAB PO STA (11:49)
[2023-07-12 12:07] LABS: Basophils % (A) 0 %; Eosinophils # (A) 0.2 k/uL (0-0.7); Eosinophils % (A) 2 %; HCT 48.9 % (39.0-53.0); HGB 16.6 gm/dL (13.0-17.5); Lymphocytes # (A) 1.9 k/uL (1.0-4.8); Lymphocytes % (A) 22 %; MCH 31.2 pg (25.0-35.0); MCHC 33.9 g/dL (31.0-37.0); Mean Platelet Volume 7.6; Monocytes # (A) 0.5 k/uL (0-1.0); Monocytes % (A) 6 %; Neutrophils # (A) 5.7 k/uL (1.3-7.7); Neutrophils % (A) 68 %; Platelet Count 294 k/uL (150-450); RBC 5.31 m/uL (4.30-5.90); RDW 12.5 % (11.5-15.5); WBC 8.4 k/uL (3.8-10.6)
--- NOTE | 2023-07-12 12:11 | XR ---
EXAMINATION TYPE: XR chest 2V DATE OF EXAM: 07/12/2023 COMPARISON: None INDICATION: Chest pain and shortness of breath TECHNIQUE: Frontal and lateral views of the chest are obtained. FINDINGS: The heart size is normal. The pulmonary vasculature is normal. The lungs are clear. Hiatal hernia with an air-fluid level is present. IMPRESSION: 1. No acute pulmonary process. 2. Hiatal hernia
[2023-07-12 12:18] LABS: ALT 22 U/L (4-49); AST 26 U/L (17-59); African American GFR (CKD) 53 (>60 ml/min/1.73 sqM); Albumin 4.8 g/dL (3.5-5.0); Alkaline Phosphatase 41 U/L (38-126); Anion Gap 17 mmol/L; Blood Urea Nitrogen 21 mg/dL (9-20); Calcium 9.9 mg/dL (8.4-10.2); Carbon Dioxide 16 mmol/L (22-30); Chloride 106 mmol/L (98-107); Glucose 196 mg/dL (74-99); Non-African American GFR(CKD) 46 (>60 ml/min/1.73 sqM); Potassium 4.4 mmol/L (3.5-5.1); Sodium 139 mmol/L (137-145); Total Bilirubin 0.8 mg/dL (0.2-1.3); Total Protein 7.8 g/dL (6.3-8.2)
[2023-07-12 12:26] LABS: Partial Thromboplastin Time 25.7 sec (22.0-30.0); Prothrombin Time 10.6 sec (10.0-12.5)
--- NOTE | 2023-07-12 12:39 | CT ---
EXAMINATION TYPE: CT brain wo con DATE OF EXAM: 07/12/2023 COMPARISON: 04/24/2023 INDICATION: Elevated BP and headache DLP: 1197.4 mGycm, Automated exposure control for dose reduction was used. CONTRAST: None CT of the brain is performed utilizing 3 mm thick sections through the posterior fossa and 3 mm thick sections through the remaining calvarium. Study is performed within 24 hours of arrival to the hosp [facility]. No abnormal hyperdensity is present to suggest an acute intracranial hemorrhage. No mass lesion is evident. No acute infarcts are evident. Ventricles and sulci are appropriate for the patient age. Paranasal sinuses and mastoid air cells within the [id number] are clear. IMPRESSION: 1. No acute intracranial process. Follow-up MRI can be performed as clinically indicated.
[2023-07-12] MEDS ORDERED: hydrALAZINE HCL 50 MG TAB PO STA (13:00)
[2023-07-12 13:25] VITALS: BP 160/81; PULSE 87; TEMP 98.3
== END 2023-07-12 13:23 | disposition home or self-care (01) ==
LOC: EC 11:01
DX: K44.9 Diaphragmatic hernia without obstruction or gangrene (principal); I16.0 Hypertensive urgency; I10 Essential (primary) hypertension; E78.5 Hyperlipidemia, unspecified; K21.9 Gastro-esophageal reflux disease without esophagitis; E11.9 Type 2 diabetes mellitus without complications; Z79.4 Long term (current) use of insulin; Z79.82 Long term (current) use of aspirin; Z79.84 Long term (current) use of oral hypoglycemic drugs; Z79.899 Other long term (current) drug therapy; Z90.49 Acquired absence of other specified parts of digestive tract
CPT/HCPCS: 36415; 70450; 71046; 80053; 83735; 84484; 85025; 85610; 85730; 93005; 99284

== ENCOUNTER 2023-07-22 08:52 | Day surgery (SDC) | payer MEDICARE ==
[2023-07-18 12:15] VITALS: BMI 29.8
[~2023-07-22 08:52] MED LIST changes: +ALPRAZolam 0.25 MG TAB PO PRN; +ALPRAZolam 0.5 MG TAB PO PRN; +ASPIRIN 325 MG TAB PO STA; +HEPARIN SODIUM,PORCINE (1 ML) 2,500 UNIT in SODIUM CHLORIDE 0.9% 250 ML IRRIGATION PRN; +HEPARIN SODIUM,PORCINE 10,000 UNIT in SODIUM CHLORIDE 0.9% 1,000 ML IRRIGATION PRN; -LACTATED RINGERS 1,000 ML IV SCH; -MOXIFLOXACIN HCL 0.5% DROPS 3 ML BTL OP PRN; +NITROGLYCERIN SL TABS 0.4 MG TAB SUBLINGUAL PRN; -TETRACAINE 0.5% OPHTH (PF) DROPS 4 ML BTL OP PRN; -TIMOLOL 0.5% OPHTH DROPS 5 ML BTL OP PRN
[2023-07-22] MEDS ORDERED: SODIUM CHLORIDE 0.9% 1,000 ML IV ONE (10:04)
[2023-07-22 10:30] LABS: Glucose,Whole Blood 200 mg/dL (70-110)
[2023-07-22] MEDS ORDERED: glipiZIDE 5 MG TAB PO STA (10:44)
[2023-07-22] MEDS ORDERED: HEPARIN SODIUM 1,000 UN/ML (10ML VL) ONE (12:18)
[2023-07-22] MEDS ORDERED: MIDAZOLAM 2 MG/2 ML VIAL IVP ONE ×2 (12:33→12:57)
[2023-07-22] MEDS ORDERED: LIDOCAINE 1% INJ 10MG/ML (5 ML VIAL-PF) SQ ONE (12:36)
[2023-07-22] MEDS ORDERED: VERAPAMIL SYRINGE (5 MG/10 ML) INTRAARTER ONE (12:37)
[2023-07-22] MEDS ORDERED: HEPARIN SODIUM 1,000 UN/ML (10ML VL) IV ONE (12:40)
[2023-07-22] MEDS ORDERED: TICAGRELOR 90 MG TAB ONE (12:56)
[2023-07-22] MEDS ORDERED: TICAGRELOR 90 MG TAB PO ONE (12:59)
[2023-07-22] MEDS ORDERED: HEPARIN SODIUM 1,000 UN/ML (10ML VL) IVP ONE ×2 (13:01→13:34)
[2023-07-22] MEDS ORDERED: niCARdipine 25 MG/10 ML VIAL ONE (13:02)
[2023-07-22] MEDS ORDERED: IOPAMIDOL-370 100ML BTL INJ ONE ×2 (13:11→13:28)
[2023-07-22] MEDS ORDERED: fentaNYL (PF) 50 MCG/ML 2 ML AMP ONE (13:12)
[2023-07-22] MEDS ORDERED: fentaNYL (PF) 50 MCG/1 ML VIAL IVP ONE (13:12)
[2023-07-22] MEDS ORDERED: NITROGLYCERIN 1000MCG/10ML SYRINGE INTRACORON ONE (13:17)
[2023-07-22] MEDS ORDERED: HYDROcodone/APAP 5-325MG 1 EACH TAB PO PRN (13:31)
[2023-07-22] MEDS ORDERED: BACLOFEN 10 MG TAB PO PRN (13:31)
[2023-07-22] MEDS ORDERED: BUTALB/APAP/CAFF 50-325-40MG TAB PO PRN (13:31)
[2023-07-22] MEDS ORDERED: NITROGLYCERIN SL TABS 0.4 MG TAB SUBLINGUAL PRN (13:32)
[2023-07-22] MEDS ORDERED: ZOLPIDEM 5 MG TAB PO PRN (13:32)
[2023-07-22] MEDS ORDERED: MAG HYDROX/AL HYDROX/SIMETH 30 ML CUP PO PRN (13:32)
[2023-07-22] MEDS ORDERED: ATROPINE SULFATE 0.1 MG/ML 10ML SYRINGE IV PRN (13:32)
[2023-07-22] MEDS ORDERED: RX INFO: IV CONTRAST WAS GIVEN 1 EACH MISC MISCELLANE PRN (13:32)
--- NOTE | 2023-07-22 13:39 | P.PCN ---
Date of Procedure: 07/22/23 Operative Findings: CARDIAC CATHETERIZATION AND PERCUTANEOUS CORONARY INTERVENTION PERFORMING PHYSICIAN: Je Crespo MD, VI PROCEDURE PERFORMED: 1. Selective right and left coronary angiogram 2. Left heart catheterization 3. Successful stenting of ramus intermedius using 3.0 x 18 mm Xience BRAIN with an excellent angiographic results 4. Adjunctive use of intravascular imaging 5. Ultrasound guided access of the right radial artery INDICATION: This is a 73-year-old gentleman with multiple risk factors including diabetes and hypertension and dyslipidemia who continues to be symptomatic in terms of chest discomfort concerning for angina COMPLICATION: None APPROACH: Right radial artery LEVEL OF SEDATION: Moderate with the sedation time off 56 minutes PROCEDURE DESCRIPTION: After obtaining informed consent the patient was brought to the cardiac rags laborer. The right radial artery was cannulated using micropuncture technique under ultrasound guidance a micropuncture wire passed easily then I placed a 6-Swiss sheath in the right radial artery. I gave the patient 2 mg of verapamil intra- arterial and 5000 use of heparin intravenous with continuous ACT monitoring. Additional heparin was given throughout the procedure based on the ACT. Selective right and left coronary angiogram performed using JR4 and JL 3.5 catheters. After that left heart catheterization was performed using the JR4 catheter which cross the aortic valve. After that I did perform ECI of the ramus intermedius. The procedure was completed was no complication SELECTIVE CORONARY ANGIOGRAM: The right coronary artery: Moderate caliber vessel to large caliber vessel and a dominant vessel. The ostial RCA has a lesion appeared to be in the range of 30-40%. The mid RCA has mild disease only. The RCA distally bifurcates into PDA and PLV branches be the PLV branch has mild disease only. The PDA branch is a small caliber vessel and appeared to be subtotally occluded. Left main: Calcified was mild disease only. Bifurcates into an LCx and LAD The left circumflex: Large caliber vessel nondominant vessel. The LCx in the midportion has a tight lesion appeared to be in the range of 60%. As a matter of fact the lesion is involving the first obtuse marginal branch and the circumflex itself is a small- caliber vessel in the AV groove The ramus intermedius: Large-caliber vessel with subtotally occluded lesion appeared to be in the range of 99.9% and the vessel itself is calcified The left anterior descending artery: Large caliber vessel. The proximal LAD has mild disease only. The mid LAD has intermediate lesion very prominent on the ONEAL cranial view. The LAD distally has another lesion appeared to be in the intermediate range only. HEMODYNAMICS: The LVEDP was 8 mmHg with mild gradient across aortic valve PCI OF THE ramus intermedius: Anticoagulation was initiated using heparin with continuous ACT monitoring. Subsequently I did engage the left main using a JL 3.5 guiding catheter. I did wire the ramus intermedius using initially a whisper wire and subsequently a run-through wire for support. Intravascular ultrasound was performed and showed diameter around 3 mm and the vessel was calcified. Predilatation was performed using 2 mm noncompliant balloon and subsequently 2.5 mm noncompliant balloon before I deployed 3.0 x 18 mm stent and the stent was positioned under fluoroscopy guidance and deployed under its nominal pressure. Postdilatation was performed after intravascular ultrasound performed again and showed that the vessel was not well opposed. Postdilatation was performed using 3.25 mm noncompliant balloon. Final angiogram showed excellent angiographic results and the procedure was completed was no complication CONCLUSION: Critical disease involving the ramus intermedius and left circumflex. I did perform successful stenting of the ramus intermedius Intermediate disease involving the ostial RCA and mid LAD Normal left-sided filling pressure POSTPROCEDURE MANAGEMENT: 1. Dual antiplatelet therapy using aspirin and Brilinta for 6-12 month 2. Aggressive cholesterol control 3. Follow-up with the patient
[2023-07-22] MEDS ORDERED: ACETAMINOPHEN TAB 500 MG TAB PO ONE (13:44)
[2023-07-22] MEDS ORDERED: SODIUM CHLORIDE 0.9% 1,000 ML in EMPTY BAG 1 BAG IV SCH (13:45)
[2023-07-22 13:46] LABS: Glucose,Whole Blood 174 mg/dL (70-110)
[2023-07-22] MEDS: INSULIN DETEMIR (LEVEMIR) 100 UNIT/ML SYR SQ SCH (13:49)
[2023-07-22] MEDS: SODIUM CHLORIDE 0.9% 1,000 ML in EMPTY BAG 1 BAG IV SCH ×2 (16:27→18:41)
[2023-07-22] MEDS: hydrALAZINE HCL 50 MG TAB PO SCH ×2 (17:07→20:00)
[2023-07-22 17:21] LABS: Glucose,Whole Blood 284 mg/dL (70-110)
[2023-07-22] MEDS: FAMOTIDINE 20 MG TAB PO SCH (20:00)
[2023-07-22] MEDS: TICAGRELOR 90 MG TAB PO SCH (20:01)
[2023-07-22] MEDS: ACETAMINOPHEN TAB 325 MG TAB PO PRN (20:56)
[2023-07-22] MEDS ORDERED: ATORVASTATIN 40 MG TAB PO SCH (21:00)
[2023-07-22] MEDS ORDERED: METOPROLOL SUCCINATE (ER) 100 MG TAB.ER.24H PO SCH (21:00)
[2023-07-22] MEDS ORDERED: ASPIRIN 81 MG PO SCH (21:00)
[2023-07-23] MEDS: SODIUM CHLORIDE 0.9% 1,000 ML in EMPTY BAG 1 BAG IV SCH (02:58)
[2023-07-23] MEDS: ACETAMINOPHEN TAB 325 MG TAB PO PRN (04:22)
[2023-07-23 06:07] LABS: Glucose,Whole Blood 267 mg/dL (70-110)
[2023-07-23] MEDS: INSULIN DETEMIR (LEVEMIR) 100 UNIT/ML SYR SQ SCH (06:07)
[2023-07-23 06:38] LABS: African American GFR (CKD) 52 (>60 ml/min/1.73 sqM); Non-African American GFR(CKD) 45 (>60 ml/min/1.73 sqM)
[2023-07-23] MEDS ORDERED: PANTOPRAZOLE 40 MG TABLET PO SCH (07:30)
[2023-07-23 08:04] VITALS: BP 145/69; RESP 18; TEMP 97.5
[2023-07-23] MEDS: FAMOTIDINE 20 MG TAB PO SCH (08:06)
[2023-07-23] MEDS: hydrALAZINE HCL 50 MG TAB PO SCH (08:06)
[2023-07-23] MEDS: TICAGRELOR 90 MG TAB PO SCH (08:07)
[2023-07-23] MEDS ORDERED: TAMSULOSIN 0.4 MG CAP.ER.24H PO SCH (09:00)
[2023-07-23] MEDS ORDERED: CYANOCOBALAMIN 500 MCG TAB PO SCH (09:00)
[2023-07-23] MEDS ORDERED: amLODIPine 10 MG TAB PO SCH (09:00)
[2023-07-23] MEDS ORDERED: SPIRONOLACTONE 25 MG TAB PO SCH (09:00)
[2023-07-23] MEDS ORDERED: NON FORMULARY DRUG (Insulin Glargine 100 UNIT/ML Vial) SQ SCH (09:00)
[2023-07-23] MEDS ORDERED: VALSARTAN 160 MG TAB PO SCH (09:00)
[2023-07-23] MEDS ORDERED: ZINC SULFATE 220 MG CAP PO SCH (09:00)
[2023-07-23] MEDS ORDERED: FENOFIBRATE 160 MG TAB PO SCH (09:00)
[2023-07-23] MEDS ORDERED: hydroCHLOROthiazide 25 MG TAB PO SCH (09:00)
[2023-07-23 09:22] VITALS: PULSE 69
--- NOTE | 2023-07-23 14:27 | P.PCN ---
Date of Procedure: 07/23/23 Operative Findings: The patient is a very pleasant 73-year-old gentleman who underwent yesterday a heart catheterization and stenting of the ramus intermedius coronary artery with a good angiographic results as with no complication from right radial approach. The patient was seen and evaluated this morning. He is asymptomatic and he is hemodynamically stable. The right radial site is soft nontender with no bruises. The patient is going to be discharged home on dual antiplatelet therapy and I will follow-up with the patient next week in the office
[2023-07-24] MEDS ORDERED: FAMOTIDINE 20 MG TAB PO SCH (09:00)
== END 2023-07-23 10:45 | disposition home or self-care (01) ==
LOC: CATHCVL 08:52 → 6NMEDSUR 13:26 → CATHCVL 07-23 10:45
PROVIDERS: ATTEND Internal Medicine Interventional Cardiology
DX: R07.89 Other chest pain (principal); I10 Essential (primary) hypertension; E78.5 Hyperlipidemia, unspecified; E11.9 Type 2 diabetes mellitus without complications; Z79.02 Long term (current) use of antithrombotics/antiplatelets
CPT/HCPCS: 92978; 93458; 82565; C9600; C1769 ×4; C1887; C1894; C1753; C1874; C1725 ×3; J2250; J2001; J1644; Q9967; J3010; J2305

== ENCOUNTER → 2023-08-19 | Outpatient (CLI) | payer MEDICARE ==
[2023-08-19 15:19] LABS: HCT 44.9 % (39.6-50.0); HGB 14.8 g/dL (13.0-17.0); MCH 30.7 pg (27.0-32.0); MCV 93.2 FL (80.0-97.0); Mean Platelet Volume 9.8 FL (9.5-12.2); NRBC Per 100 WBC 0 X 10*3/uL (0.00-0.01); Platelet Count 334 X 10*3/uL (140-440); RBC 4.82 X 10*6/uL (4.40-5.60); WBC 6.17 X 10*3/uL (4.50-10.00)
[2023-08-19 15:26] LABS: Blood Urea Nitrogen 18.3 mg/dL (9.0-27.0); Carbon Dioxide 21.3 mmol/L (21.6-31.8); Chloride 103 mmol/L (96-109); Potassium 4.5 mmol/L (3.5-5.5); Sodium 138 mmol/L (135-145)
== END | disposition home or self-care (01) ==
LOC: LABPAT 08:59
PROVIDERS: ATTEND Internal Medicine Interventional Cardiology
DX: Z01.812 Encounter for preprocedural laboratory examination (principal); I25.10 Atherosclerotic heart disease of native coronary artery without angina pectoris
CPT/HCPCS: 80051; 82565; 84520; 85027

== ENCOUNTER 2023-09-01 08:21 | Day surgery (SDC) | payer MEDICARE ==
[~2023-09-01 08:21] MED LIST changes: -ASPIRIN 325 MG TAB PO STA
[2023-09-01] MEDS: SODIUM CHLORIDE 0.9% 1,000 ML in EMPTY BAG 1 BAG IV SCH (08:45)
[2023-09-01 08:59] LABS: Glucose,Whole Blood 140 mg/dL (70-110)
[2023-09-01 09:45] VITALS: RESP 16
[2023-09-01] MEDS ORDERED: HEPARIN SODIUM 1,000 UN/ML (10ML VL) ONE (10:04)
[2023-09-01] MEDS ORDERED: VERAPAMIL 2.5 MG/ML 2 ML AMP ONE (10:04)
[2023-09-01] MEDS ORDERED: LIDOCAINE 1% INJ 10MG/ML (20 ML MDV) ONE (10:04)
[2023-09-01] MEDS: MIDAZOLAM 2 MG/2 ML VIAL IVP ONE ×2 (10:36→10:43)
[2023-09-01] MEDS: fentaNYL (PF) 50 MCG/ML 2 ML AMP IVP ONE (10:36)
[2023-09-01] MEDS: LIDOCAINE 1% INJ 10MG/ML (20 ML MDV) SQ ONE (10:38)
[2023-09-01] MEDS: VERAPAMIL SYRINGE (5 MG/10 ML) INTRAARTER ONE (10:42)
[2023-09-01] MEDS: HEPARIN SODIUM 1,000 UN/ML (10ML VL) IVP ONE (10:43)
[2023-09-01] MEDS: IOPAMIDOL-370 100ML BTL INJ ONE ×2 (11:18→11:43)
[2023-09-01] MEDS: SODIUM CHLORIDE 0.9% 1,000 ML IV ONE (11:44)
[2023-09-01] MEDS ORDERED: fentaNYL (PF) 50 MCG/ML 2 ML AMP ONE (11:46)
[2023-09-01] MEDS ORDERED: glipiZIDE 5 MG TAB PO PRN (11:49)
[2023-09-01] MEDS ORDERED: BUTALB/APAP/CAFF 50-325-40MG TAB PO PRN (11:49)
[2023-09-01] MEDS ORDERED: RX INFO: IV CONTRAST WAS GIVEN 1 EACH MISC MISCELLANE PRN (11:51)
[2023-09-01] MEDS ORDERED: MAG HYDROX/AL HYDROX/SIMETH 30 ML CUP PO PRN (11:51)
[2023-09-01] MEDS ORDERED: ATROPINE SULFATE 0.1 MG/ML 10ML SYRINGE IV PRN (11:51)
--- NOTE | 2023-09-01 11:59 | P.PCN ---
Date of Procedure: 09/01/23 Operative Findings: PERCUTANEOUS CORONARY INTERVENTION Performing physician Je Crespo M.D. Procedure Performed: 1. Successful stenting of the mid left circumflex using 3.5 x 23 mm Xience drug-eluting stent with an excellent angiographic results. 2. Adjunctive use of intravascular imaging 3. Ultrasound-guided access of the right radial artery. 4. Selective right common femoral artery angiogram Indication: Severe CAD. Please refer to prior heart catheterization and PCI Approach: Right radial artery and right common femoral artery Complications: None Level of Sedation: Moderate with a sedation length of 72 minutes Procedure Discussion: After obtaining an informed consent the patient was brought to the cardiac union laborer. The right radial artery was cannulated using puncture technique under ultrasound guidance an echo puncture wire passed easily then I placed a 6-Maltese 11 cm sheath at the right radial artery and anticoagulation was initiated using heparin with continuous ACT monitoring. Subsequently I did engage the left main using a CLS 3 guiding catheter. After that I did wire the left circumflex using initially whisper wire and subsequently a run-through wire to have better support because the left circumflex was extremely calcified and tortuous. After that attempting advancing balloon was unsuccessful because the guidewire was not seated well in the left main and for that reason I decided to upgrade into 7- Maltese system and go from the right common femoral artery. The right common femoral artery was cannulated using puncture technique under ultrasound guidance an echo puncture wire passed easily then I placed a 7-Maltese 23 cm bright tip sheath at the right common femoral artery. After that I did engage the left main using an EBU 3.75 guiding catheter. I did wire the left circumflex using a whisper wire with a backup support of microcatheter. Subsequently I did balloon angioplasty using initially told millimeter balloon and subsequently a 3 mm balloon and subsequently 3.5 mm balloon before I deployed 3.5 x 23 mm stent where the stent was positioned under fluoroscopy guidance and deployed under fluoroscopy guidance. Please note that we did perform intravascular imaging from right radial approach and that showed a diameter on 3.5 mm. After that and ask ultrasound performed again after stenting and showed that the stent was not well expanded so I postdilated the stent using 3.5 m noncompliant balloon which was inflated under 16 breanne for 20 seconds. Final angiogram showed good angiographic results and the procedure was completed was no complication. By the end I did exchange my long sheath into short sheath using 035 wire before I did selective right common femoral artery angiogram Postprocedure Management: 1. Dual antiplatelet therapy 2. Aggressive cholesterol control 3. Risk factors modification
[2023-09-01 15:33] VITALS: BMI 30.2
[2023-09-01] MEDS: ASPIRIN 325 MG TAB PO ONE (15:33)
[2023-09-01 17:10] LABS: Glucose,Whole Blood 340 mg/dL (70-110)
[2023-09-01] MEDS: ASPIRIN 81 MG PO SCH (20:13)
[2023-09-01] MEDS: LORazepam 0.5 MG TAB PO SCH (20:13)
[2023-09-01] MEDS: METOPROLOL SUCCINATE (ER) 100 MG TAB.ER.24H PO SCH (20:13)
[2023-09-01] MEDS: FAMOTIDINE 20 MG TAB PO SCH (20:13)
[2023-09-01] MEDS: ATORVASTATIN 40 MG TAB PO SCH (20:14)
[2023-09-01] MEDS: BACLOFEN 10 MG TAB PO PRN (20:14)
[2023-09-01] MEDS: HYDROcodone/APAP 5-325MG 1 EACH TAB PO PRN (20:14)
[2023-09-01] MEDS: hydrALAZINE HCL 50 MG TAB PO SCH (20:14)
[2023-09-01] MEDS: TICAGRELOR 90 MG TAB PO SCH (20:14)
[2023-09-01 22:18] LABS: Glucose,Whole Blood 259 mg/dL (70-110)
[2023-09-02 05:43] LABS: Glucose,Whole Blood 141 mg/dL (70-110)
[2023-09-02] MEDS: ACETAMINOPHEN TAB 325 MG TAB PO PRN (05:47)
[2023-09-02 08:41] VITALS: BP 125/73; PULSE 66; TEMP 97.4
[2023-09-02] MEDS: ZINC SULFATE 220 MG CAP PO SCH (08:53)
[2023-09-02] MEDS: amLODIPine 10 MG TAB PO SCH (08:54)
[2023-09-02] MEDS: TAMSULOSIN 0.4 MG CAP.ER.24H PO SCH (08:54)
[2023-09-02] MEDS: SPIRONOLACTONE 25 MG TAB PO SCH (08:54)
[2023-09-02 09:24] LABS: HCT 38.5 % (39.0-53.0); MCH 31.9 pg (25.0-35.0); MCHC 34.1 g/dL (31.0-37.0); MCV 93.7 fL (80.0-100.0); Mean Platelet Volume 7.6; Platelet Count 291 k/uL (150-450); RBC 4.11 m/uL (4.30-5.90); RDW 12.8 % (11.5-15.5); WBC 7.4 k/uL (3.8-10.6)
[2023-09-02 09:27] LABS: HGB 13.1 gm/dL (13.0-17.5)
[2023-09-02] MEDS: hydroCHLOROthiazide 25 MG TAB PO SCH (09:28)
[2023-09-02] MEDS: FENOFIBRATE 160 MG TAB PO SCH (09:28)
[2023-09-02] MEDS: ESCITALOPRAM 10 MG TAB PO SCH (09:29)
[2023-09-02] MEDS: VALSARTAN 160 MG TAB PO SCH (09:29)
[2023-09-02] MEDS: INSULIN DETEMIR (LEVEMIR) 100 UNIT/ML SYR SQ SCH (09:29)
[2023-09-02 09:30] LABS: African American GFR (CKD) 55 (>60 ml/min/1.73 sqM); Anion Gap 9 mmol/L; Blood Urea Nitrogen 18 mg/dL (9-20); Calcium 9.2 mg/dL (8.4-10.2); Carbon Dioxide 19 mmol/L (22-30); Chloride 108 mmol/L (98-107); Glucose 221 mg/dL (74-99); Non-African American GFR(CKD) 47 (>60 ml/min/1.73 sqM); Potassium 4.1 mmol/L (3.5-5.1); Sodium 136 mmol/L (137-145)
--- NOTE | 2023-09-02 11:52 | P.DS ---
Providers Attending physician: Je Crespo Consults: 09/01/23 11:51 Consult Physician Routine Consulting Provider: [facility] Consult Reason/Comments: Post Interventional patient Do you want consulting provider notified?: Already Contacted Primary care physician: [facility] Course: The patient is a pleasant 73-year-old gentleman who underwent yesterday successful stenting of the left circumflex coronary artery from right radial approach and right femoral approach. Please refer to the procedure report for details about the procedure. The patient was seen and evaluated this morning. He is asymptomatic and he is hemodynamically stable. The right radial site and the right common femoral artery site are soft and nontender was no bruises with good pulses. The patient will be discharged on dual antiplatelet therapy and follow-up with the patient in the office. He was instructed about the importance of taking his medications including dual antiplatelet therapy and the consequences of possible interrupting dual antiplatelet therapy including a heart attack and Plan - Discharge Summary Discharge Rx Participant: No New Discharge Prescriptions: Continue Aspirin 81 mg PO HS Insulin Glargine [Lantus Vial] 40 unit SQ QAM Fenofibrate [Lofibra] 160 mg PO DAILY glipiZIDE [Glucotrol] 5 mg PO BID PRN PRN Reason: CBG ABOVE 150 Tamsulosin [Flomax] 0.4 mg PO DAILY hydrALAZINE HCL [Apresoline] 100 mg PO TID Famotidine [Pepcid] 40 mg PO BID Ticagrelor [Brilinta] 90 mg PO BID #180 tab Metoprolol Succinate [Toprol XL] 100 mg PO HS Rosuvastatin [Crestor] 20 mg PO HS Omeprazole [PriLOSEC] 20 mg PO BID Zinc Gluconate [Zinc] 50 mg PO DAILY Cyanocobalamin [Vitamin B-12] 1,000 mcg PO DAILY #30 tab HYDROcodone/APAP 5-325MG [[place] 5-325] 1 tab PO Q6HR PRN PRN Reason: Pain hydroCHLOROthiazide 25 mg PO QAM Spironolactone 25 mg PO QAM Butalb/Acetaminophen/Caffeine [Fioricet 50-300-40 mg Capsule] 1 each PO Q6HR PRN PRN Reason: Headache Baclofen 10 mg PO DIRECTED PRN PRN Reason: BACK PAIN Amlodipine Besylate/Valsartan [Amlodipine-Valsartan 10-320 mg] 1 each PO QAM Acetaminophen [Tylenol Arthritis] 1,300 mg PO DIRECTED PRN PRN Reason: Pain metFORMIN HCL [Glucophage] 500 mg PO BID LORazepam [Ativan] 0.5 mg PO BID Escitalopram [Lexapro] 10 mg PO DAILY Ibuprofen [Motrin Ib] 200 mg PO Q8H Discharge Medication List Aspirin 81 mg PO HS 06/28/14 [History] Fenofibrate [Lofibra] 160 mg PO DAILY 06/28/14 [History] Insulin Glargine [Lantus Vial] 40 unit SQ QAM 06/28/14 [History] glipiZIDE [Glucotrol] 5 mg PO BID PRN 07/26/14 [History] Metoprolol Succinate [Toprol XL] 100 mg PO HS 04/24/23 [History] Omeprazole [PriLOSEC] 20 mg PO BID 04/24/23 [History] Rosuvastatin [Crestor] 20 mg PO HS 04/24/23 [History] Tamsulosin [Flomax] 0.4 mg PO DAILY 04/24/23 [History] Zinc Gluconate [Zinc] 50 mg PO DAILY 04/24/23 [History] Cyanocobalamin [Vitamin B-12] 1,000 mcg PO DAILY #30 tab 04/26/23 [Rx] Acetaminophen [Tylenol Arthritis] 1,300 mg PO DIRECTED PRN 07/18/23 [History] Amlodipine Besylate/Valsartan [Amlodipine-Valsartan 10-320 mg] 1 each PO QAM 07/18/23 [History] Baclofen 10 mg PO DIRECTED PRN 07/18/23 [History] Butalb/Acetaminophen/Caffeine [Fioricet 50-300-40 mg Capsule] 1 each PO Q6HR PRN 07/18/23 [History] Famotidine [Pepcid] 40 mg PO BID 07/18/23 [History] HYDROcodone/APAP 5-325MG [[place] 5-325] 1 tab PO Q6HR PRN 07/18/23 [History] Spironolactone 25 mg PO QAM 07/18/23 [History] hydrALAZINE HCL [Apresoline] 100 mg PO TID 07/18/23 [History] hydroCHLOROthiazide 25 mg PO QAM 07/18/23 [History] Ticagrelor [Brilinta] 90 mg PO BID #180 tab 07/23/23 [Rx] Escitalopram [Lexapro] 10 mg PO DAILY 08/26/23 [History] LORazepam [Ativan] 0.5 mg PO BID 08/26/23 [History] metFORMIN HCL [Glucophage] 500 mg PO BID 08/26/23 [History] Ibuprofen [Motrin Ib] 200 mg PO Q8H 09/01/23 [History] Follow up Appointment(s)/Referral(s): Je Crespo MD [STAFF PHYSICIAN] - 1 Week (THE OFFICE WILL CALL YOU WITH AN APPOINTMENT DATE AND TIME) Patient Instructions/Handouts: Moderate Sedation (DC), Coronary Intravascular Stent Placement (DC), After Radial Heart Catheterization (GEN) Activity/Diet/Wound Care/Special Instructions: *NO LIFTING, PUSHING, OR PULLING ANYTHING OVER 5 POUNDS FOR 5 DAYS WITH RIGHT ARM. *REMOVE DRESSING TOMORROW (ABOUT NOON). NO NEED TO RE-DRESS. *YOU MAY SHOWER TOMORROW AFTER DRESSING REMOVAL. NO PROLONGED SOAKING OF PUNCTURE SITE FOR 3 DAYS (SUCH TUB OR SWIM). *ANY SIGNS OF BLEEDING (HARDNESS, SWELLING, OR EXCESSIVE BRUISING) HOLD DIRECT PRESSURE ON YOUR PUNCTURE SITE AND COME TO THE NEAREST EMERGENCY ROOM TO GET YOUR PUNCTURE SITE LOOKED AT - DO NOT DRIVE YOURSELF! EITHER CALL EMS OR HAVE SOMEONE DRIVE YOU! *YOU MAY DRIVE WED. Discharge Disposition: HOME SELF-CARE
[2023-09-03] MEDS ORDERED: FAMOTIDINE 20 MG TAB PO SCH (09:00)
== END 2023-09-02 12:17 | disposition home or self-care (01) ==
LOC: CATHCVL 08:21 → 6NMEDSUR 11:45 → CATHCVL 09-02 12:17
PROVIDERS: ATTEND Internal Medicine Interventional Cardiology
DX: I25.10 Atherosclerotic heart disease of native coronary artery without angina pectoris (principal); E66.9 Obesity, unspecified; I10 Essential (primary) hypertension; E78.5 Hyperlipidemia, unspecified; Z82.49 Family history of ischemic heart disease and other diseases of the circulatory system; Z95.5 Presence of coronary angioplasty implant and graft; Z79.82 Long term (current) use of aspirin; Z79.899 Other long term (current) drug therapy
CPT/HCPCS: 92978; 76937; 80048; 85027; C9600; C1769 ×5; C1887 ×3; C1894 ×3; C1725 ×3; C1753; C1874; J2250; J2001; J3010; J1644; Q9967

== ENCOUNTER 2023-09-07 11:31 | Emergency (ER) | payer MEDICARE ==
[2023-09-07 11:39] VITALS: TEMP 98.8
[2023-09-07] MEDS ORDERED: CEPHALEXIN 500MG STARTER PACK 4 CAP BTL PO STA (11:55)
--- NOTE | 2023-09-07 12:02 | ED ---
Skin/Abscess/FB HPI - General Chief complaint: Extremity Problem,Nontraumatic Stated complaint: right arm infection Time Seen by Provider: 09/07/23 11:39 Source: patient, RN notes reviewed Mode of arrival: ambulatory Limitations: no limitations - History of Present Illness Initial comments: This is a 73-year-old male who presents to the emergency department for concerns of an infection to his right wrist. He had a cardiac cath with stent placement on 09/01/23. They initially tried to go through the right wrist, but were unsuccessful with that attempt and ended up going through the right groin. He has since started to develop swelling and redness around the puncture site on the right wrist and is concerned about an infection. Denies any fevers or chills. Also denies any substantial pain associated with this. - Related Data Home Medications Medication Instructions Recorded Confirmed Aspirin 81 mg PO HS 06/28/14 09/01/23 Fenofibrate [Lofibra] 160 mg PO DAILY 06/28/14 09/01/23 Insulin Glargine [Lantus Vial] 40 unit SQ QAM 06/28/14 09/01/23 glipiZIDE [Glucotrol] 5 mg PO BID PRN 07/26/14 09/01/23 Metoprolol Succinate [Toprol XL] 100 mg PO HS 04/24/23 09/01/23 Omeprazole [PriLOSEC] 20 mg PO BID 04/24/23 09/01/23 Rosuvastatin [Crestor] 20 mg PO HS 04/24/23 09/01/23 Tamsulosin [Flomax] 0.4 mg PO DAILY 04/24/23 09/01/23 Zinc Gluconate [Zinc] 50 mg PO DAILY 04/24/23 09/01/23 Acetaminophen [Tylenol Arthritis] 1,300 mg PO DIRECTED PRN 07/18/23 08/26/23 Amlodipine Besylate/Valsartan 1 each PO QAM 07/18/23 09/01/23 [Amlodipine Besylate/Valsartan 10-320 mg] Baclofen 10 mg PO DIRECTED PRN 07/18/23 09/01/23 Butalb/Acetaminophen/Caffeine 1 each PO Q6HR PRN 07/18/23 08/26/23 [Fioricet 50-300-40 mg Capsule] Famotidine [Pepcid] 40 mg PO BID 07/18/23 09/01/23 HYDROcodone/APAP 5-325MG [[place] 1 tab PO Q6HR PRN 07/18/23 08/26/23 5-325] Spironolactone 25 mg PO QAM 07/18/23 09/01/23 hydrALAZINE HCL [Apresoline] 100 mg PO TID 07/18/23 09/01/23 hydroCHLOROthiazide 25 mg PO QAM 07/18/23 09/01/23 Escitalopram [Lexapro] 10 mg PO DAILY 08/26/23 09/01/23 LORazepam [Ativan] 0.5 mg PO BID 08/26/23 09/01/23 metFORMIN HCL [Glucophage] 500 mg PO BID 08/26/23 09/01/23 Ibuprofen [Motrin Ib] 200 mg PO Q8H 09/01/23 09/01/23 Previous Rx's Medication Instructions Recorded Cyanocobalamin [Vitamin B-12] 1,000 mcg PO DAILY #30 tab 04/26/23 Ticagrelor [Brilinta] 90 mg PO BID #180 tab 07/23/23 Cephalexin [Keflex] 500 mg PO Q6HR 7 Days #28 cap 09/07/23 Allergies Allergy/AdvReac Type Severity Reaction Status Date / Time No Known Allergies Allergy Verified 09/07/23 11:38 Review of Systems ROS Statement: Those systems with pertinent positive or pertinent negative responses have been documented in the HPI. ROS Other: All systems not noted in ROS Statement are negative. Past Medical History Past Medical History: Diabetes Mellitus, GERD/Reflux, Hyperlipidemia, Hypertensi on, Pneumonia Additional Past Medical History / Comment(s): HEART MURMUR, palpitations History of Any Multi-Drug Resistant Organisms: None Reported Past Surgical History: Adenoidectomy, Cholecystectomy, Heart Catheterization, Heart Catheterization With Stent, Hernia Repair, Tonsillectomy Additional Past Surgical History / Comment(s): rt rotator cuff surg., rt knee arthroscopy, hiatal hernia repair, rt inguinal hernia repair, hemorrhoidectomy, rhinoplasty Past Anesthesia/Blood Transfusion Reactions: No Reported Reaction, Motion Sickness Date of Last Stent Placement:: 07-22-23 Past Psychological History: Anxiety Smoking Status: Never smoker Past Alcohol Use History: None Reported Past Drug Use History: None Reported - Past Family History Father Family Medical History: Myocardial Infarction ([place]) Additional Family Medical History / Comment(s): at 45 due to [place] Mother Family Medical History: Rheumatoid Arthritis (RA) General Exam Limitations: no limitations General appearance: alert, in no apparent distress Head exam: Present: atraumatic, normocephalic, normal inspection Respiratory exam: Present: normal lung sounds bilaterally. Absent: respiratory distress, wheezes, rales, rhonchi, stridor Cardiovascular Exam: Present: regular rate, normal rhythm, normal heart sounds. Absent: systolic murmur, diastolic murmur, rubs, gallop, clicks Extremities exam: Present: other (Puncture wound to the volar aspect of the right wrist with minor surrounding erythema and swelling. Non pulsatile. Compression causes drainage of serous mixed with purulent material) Neurological exam: Present: alert, oriented X3, CN II-XII intact Psychiatric exam: Present: normal affect, normal mood Course Vital Signs 09/07/23 09/07/23 11:34 14:20 Temperature 98.8 F Pulse Rate 95 70 Respiratory 18 19 Rate Blood Pressure 134/82 142/85 O2 Sat by Pulse 98 94 L Oximetry Medical Decision Making - Medical Decision Making This is a 73 year old male who presents to the emergency department for concerns of an infection to his right wrist. Was pt. sent in by a medical professional or institution? @ -No Did you speak to anyone other than the patient for history? @ -No Did you review nursing and triage notes? @ -Yes, and I agree, it is accurate with regards to the patient's symptoms. Were old charts reviewed? @ -No Differential Diagnosis? @ -Differential Wrist Erythema/Lump: Cellulitis, abscess, hematoma, pseudoaneurysm, this is not meant to be an all- inclusive list. EKG interpreted by me (3pts min.)? @ -Not obtained X-rays interpreted by me (1pt min.)? @ -Not obtained CT interpreted by me (1pt min.)? @ -Not obtained U/S interpreted by me (1pt. min.)? @ -US of the upper extremity obtained. My interpretation identifies no evidence of a pseudoaneurysm. What testing was considered but not performed? (CT, X-rays, U/S, labs)? Why? @ -None What meds were considered but not given? Why? @ -None Did you discuss the management of the patient with other professionals? @ -No Did you reconcile home meds? @ -No Was smoking cessation discussed for >3mins.? @ -No Was critical care preformed (if so, how long)? @ -No Were there social determinants of health that impacted care today? How? (Homelessness, low income, unemployed, alcoholism, drug addiction, transportation, low edu. Level, literacy, decrease access to med. care, alf, rehab)? @ -No Was there de-escalation of care discussed even if they declined? (Discuss DNR or withdrawal of care, Hospice)? @ -No What co-morbidities impacted this encounter? (DM, HTN, Smoking, COPD, CAD, Cancer, CVA, Hep., AIDS, mental health diagnosis, sleep apnea, morbid obesity)? @ -CAD, DM Was patient admitted / discharged? @ -Discharged. Physical examination suggestive of an abscess/infection The puncture wound was draining serous fluid when pressure was applied. However we did obtain an ultrasound of the mass and no evidence of a pseudoaneurysm was identified. This was said to be a low-density irregular collection suggestive o f an abscess or hematoma. Rx for Keflex provided with dosing instructions reviewed. Otherwise advised follow up with his PCP. Undiagnosed new problem with uncertain prognosis? @ -None Drug Therapy requiring intensive monitoring for toxicity (Heparin, Nitro, Insulin, Cardizem)? @ -None Were any procedures done? @ -None Diagnosis/symptom? @ -Abscess Acute, or Chronic, or Acute on Chronic? @ -Acute Uncomplicated (without systemic symptoms) or Complicated (systemic symptoms)? @ -Uncomplicated Side effects of treatment? @ -None Exacerbation, Progression, or Severe Exacerbation] @ -Not applicable Poses a threat to life or bodily function? @ -No Return precautions reviewed in depth, the patient is instructed to return to the emergency department with any new, worsening, or concerning symptoms. Patient verbalized understanding. This case was discussed in detail with the attending ED physician, Dr. Messer. Presentation, findings, and treatment plan discussed in detail as well. - Radiology Data Radiology results: report reviewed, image reviewed Disposition Clinical Impression: Cellulitis, Abscess Disposition: HOME SELF-CARE Instructions (If sedation given, give patient instructions): Cellulitis (ED), Abscess (ED) Additional Instructions: Return to the emergency department with any new, worsening, or concerning symptoms. Take the antibiotic as prescribed for 7 days. Apply warm compresses and you can continue to express fluid out of the area. Prescriptions: Cephalexin [Keflex] 500 mg PO Q6HR 7 Days #28 cap Is patient prescribed a controlled substance at d/c from ED?: No Referrals: Alex Timmons MD [Primary Care Provider] - 1-2 days Time of Disposition: 14:15
--- NOTE | 2023-09-07 14:10 | US ---
EXAMINATION TYPE: US upper ext pseudo RT DATE OF EXAM: 09/07/2023 COMPARISON: NONE CLINICAL INDICATION: Male, 73 years old with history of Right wrist lump after cardiac cath; Right wr ist lump post heart cath 6 days ago/ pt states puss recently squeezed out of area TECHNIQUE: Right wrist FINDINGS: No evidence of pseudoaneurysm arising from right radial artery at puncture site/ subcutane ous fluid collection anterior to radial artery= 2.9 x 0.6 x 1.6 cm Hematoma vs. abscess. No pseudocyst is identified. IMPRESSION: Low-density irregular collection within the subcutaneous tissues at the puncture site. C orrelate for abscess. Hematoma is within the differential.
[2023-09-07 14:43] VITALS: BP 142/85; PULSE 70; RESP 19
== END 2023-09-07 14:21 | disposition home or self-care (01) ==
LOC: EC 11:31
DX: L02.413 Cutaneous abscess of right upper limb (principal); L03.113 Cellulitis of right upper limb; E11.9 Type 2 diabetes mellitus without complications; K21.9 Gastro-esophageal reflux disease without esophagitis; E78.5 Hyperlipidemia, unspecified; I10 Essential (primary) hypertension; F41.9 Anxiety disorder, unspecified; Z79.899 Other long term (current) drug therapy; Z79.4 Long term (current) use of insulin; Z79.84 Long term (current) use of oral hypoglycemic drugs; Z79.82 Long term (current) use of aspirin
CPT/HCPCS: 99283

== ENCOUNTER → 2023-12-08 | Outpatient (CLI) | payer MEDICARE ==
--- NOTE | 2023-12-18 23:19 | P.PCN ---
Date of Procedure: 12/08/23 Operative Findings: Home sleep study report Date of service is 02/07/2024 Pertinent history This is a 73-year-old male patient with symptoms of snoring, witnessed apneas and hypersomnia with an [place] score of 13. The patient carries a body mass index of 34. The patient has a Mallampati class IV. Comorbid conditions include diabetes mellitus, hypertension and coronary artery disease. The patient is undergoing further workup with Dr. Parra regarding his coronary artery disease and is currently free of any angina. No history of any chronic lung disease. The patient has a component of PTSD. Pertinent physical findings The patient's height is 5 feet and 9 inches, weight is 231 pounds with a body mass index of 34.1 Technical description The [employer] system was used to complete this home sleep study. This is a type III home sleep study. The total recording duration was 7 hours and 49 minutes. The study started at 12:15 AM and ended at 8:05 AM. This was an adequate study as the patient had an total of 7 hours and 37 minutes of flow monitoring and 7 hours and 38 minutes of oxygen saturation monitoring Results Respiratory analysis showed a total of 19 obstructive apneas and a total of 109 obstructive hypopneas. The resulting AHI was 16.8 consistent with mild to moderate obstructive sleep apnea The patient is disease was slightly worsened in supine body position Oxygenation analysis The patient had a total of 123 oxygen saturatons. The baseline pulse ox while awake was 95%. Average pulse ox during sleep was 92% and the lowest pulse ox was 83%. The patient spent approximately 2 minutes of the sleep time below pulse ox of 89% Cardiac summary Average heart rate was 71 with a minimum heart rate of 41 and maximum heart rate of 104 Assessment Mild to moderatly severe obstructive sleep apnea with an AHI of 16.8 Mild next oxygen saturation Hypersomnia with a [place] score of 13 PTSD Hypertension Diabetes mellitus Coronary artery disease Plan This patient has a mild to moderate component of obstructive sleep apnea. Obviously, the patient is focused on losing weight. Based on his history of PTSD and claustrophobia, I think the patient may not be able to tolerate CPAP therapy at this point. As such, I would think that the patient may be a good candidate for alternative treatments. In general, the severity of her disease is mild to moderate and I think hypoglossal nerve stimulation/inspire therapy would be quite an aggressive intervention for this patient. I would like this patient to start up by losing weight, optimizing his sleep hygiene measures and discussed this with his dentist and see if she is a good candidate for an oral appliance which is helping cases of mild obstructive sleep apnea.
== END ==
LOC: 3 N SLEEP 11:02
PROVIDERS: ATTEND Internal Medicine Critical Care Medicine
DX: G47.33 Obstructive sleep apnea (adult) (pediatric) (principal); G47.10 Hypersomnia, unspecified; I10 Essential (primary) hypertension; E11.9 Type 2 diabetes mellitus without complications; F43.10 Post-traumatic stress disorder, unspecified; I25.10 Atherosclerotic heart disease of native coronary artery without angina pectoris; G47.36 Sleep related hypoventilation in conditions classified elsewhere; Z79.899 Other long term (current) drug therapy; Z79.84 Long term (current) use of oral hypoglycemic drugs; Z79.4 Long term (current) use of insulin; Z87.891 Personal history of nicotine dependence

== ENCOUNTER 2024-02-07 15:05 | Emergency (ER) | payer MEDICARE ==
[2024-02-07 15:19] VITALS: RESP 18; TEMP 97.9
--- NOTE | 2024-02-07 15:44 | ED ---
Extremity Problem HPI - General Chief complaint: Extremity Problem,Nontraumatic Stated complaint: severe R hip pain Time Seen by Provider: 02/07/24 15:35 Source: patient, RN notes reviewed, old records reviewed Mode of arrival: ambulatory Limitations: no limitations - History of Present Illness Initial comments: This is a 74-year-old male with severe pain severe right hip pain that has been increasing. With no traumatic injury states he may have hurt her been heard during some outside yard work. No travel history no sick contacts no other complaints just severe pain of the right hip history of back pain takes [place] no help with [place] at home or [facility]D Complaint: extremity pain, extremity swelling, joint swelling, joint pain (Right hip) -: days(s) Location: right -: Yes arthralgia Radiation: proximal Severity scale (1-10): 10 Quality: stabbing Consistency: constant Improves with: nothing Worsens with: nothing Associated Symptoms: denies other symptoms - Related Data Home Medications Medication Instructions Recorded Confirmed Aspirin 81 mg PO HS 06/28/14 09/01/23 Fenofibrate [Lofibra] 160 mg PO DAILY 06/28/14 09/01/23 Insulin Glargine [Lantus Vial] 40 unit SQ QAM 06/28/14 09/01/23 glipiZIDE [Glucotrol] 5 mg PO BID PRN 07/26/14 09/01/23 Metoprolol Succinate [Toprol XL] 100 mg PO HS 04/24/23 09/01/23 Omeprazole [PriLOSEC] 20 mg PO BID 04/24/23 09/01/23 Rosuvastatin [Crestor] 20 mg PO HS 04/24/23 09/01/23 Tamsulosin [Flomax] 0.4 mg PO DAILY 04/24/23 09/01/23 Zinc Gluconate [Zinc] 50 mg PO DAILY 04/24/23 09/01/23 Acetaminophen [Tylenol Arthritis] 1,300 mg PO DIRECTED PRN 07/18/23 08/26/23 Amlodipine Besylate/Valsartan 1 each PO QAM 07/18/23 09/01/23 [Amlodipine Besylate/Valsartan 10-320 mg] Baclofen 10 mg PO DIRECTED PRN 07/18/23 09/01/23 Butalb/Acetaminophen/Caffeine 1 each PO Q6HR PRN 07/18/23 08/26/23 [Fioricet 50-300-40 mg Capsule] Famotidine [Pepcid] 40 mg PO BID 07/18/23 09/01/23 HYDROcodone/APAP 5-325MG [[place] 1 tab PO Q6HR PRN 07/18/23 08/26/23 5-325] Spironolactone 25 mg PO QAM 07/18/23 09/01/23 hydrALAZINE HCL [Apresoline] 100 mg PO TID 07/18/23 09/01/23 hydroCHLOROthiazide 25 mg PO QAM 07/18/23 09/01/23 Escitalopram [Lexapro] 10 mg PO DAILY 08/26/23 09/01/23 LORazepam [Ativan] 0.5 mg PO BID 08/26/23 09/01/23 metFORMIN HCL [Glucophage] 500 mg PO BID 08/26/23 09/01/23 Ibuprofen [Motrin Ib] 200 mg PO Q8H 09/01/23 09/01/23 Previous Rx's Medication Instructions Recorded Cyanocobalamin [Vitamin B-12] 1,000 mcg PO DAILY #30 tab 04/26/23 Ticagrelor [Brilinta] 90 mg PO BID #180 tab 07/23/23 Cephalexin [Keflex] 500 mg PO Q6HR 7 Days #28 cap 09/07/23 Lidocaine 5% Patch [Lidoderm] 1 patch TOPICAL DAILY #30 patch 02/08/24 Allergies Allergy/AdvReac Type Severity Reaction Status Date / Time No Known Allergies Allergy Verified 02/08/24 09:50 Review of Systems ROS Statement: Those systems with pertinent positive or pertinent negative responses have been documented in the HPI. ROS Other: All systems not noted in ROS Statement are negative. Past Medical History Past Medical History: Diabetes Mellitus, GERD/Reflux, Hyperlipidemia, Hypertension, Pneumonia Additional Past Medical History / Comment(s): HEART MURMUR, palpitations History of Any Multi-Drug Resistant Organisms: None Reported Past Surgical History: Adenoidectomy, Cholecystectomy, Heart Catheterization, Heart Catheterization With Stent, Hernia Repair, Tonsillectomy Additional Past Surgical History / Comment(s): rt rotator cuff surg., rt knee arthroscopy, hiatal hernia repair, rt inguinal hernia repair, hemorrhoidectomy, rhinoplasty Past Anesthesia/Blood Transfusion Reactions: No Reported Reaction, Motion Sickness Date of Last Stent Placement:: 07-22-23 Past Psychological History: Anxiety Smoking Status: Never smoker Past Alcohol Use History: None Reported Past Drug Use History: None Reported - Past Family History Father Family Medical History: Myocardial Infarction ([place]) Additional Family Medical History / Comment(s): at 45 due to [place] Mother Family Medical History: Rheumatoid Arthritis (RA) General Exam - General Exam Comments Initial Comments: Significant point tenderness over the right greater trochanter Limitations: no limitations General appearance: alert, in no apparent distress Head exam: Present: atraumatic, normocephalic, normal inspection Eye exam: Present: normal appearance, PERRL, EOMI. Absent: scleral icterus, conjunctival injection, periorbital swelling ENT exam: Present: normal exam, mucous membranes moist Neck exam: Present: normal inspection. Absent: tenderness, meningismus, lymphadenopathy Respiratory exam: Present: normal lung sounds bilaterally. Absent: respiratory distress, wheezes, rales, rhonchi, stridor Cardiovascular Exam: Present: regular rate, normal rhythm, normal heart sounds. Absent: systolic murmur, diastolic murmur, rubs, gallop, clicks GI/Abdominal exam: Present: soft, normal bowel sounds. Absent: distended, tenderness, guarding, rebound, rigid Extremities exam: Present: normal inspection, full ROM, normal capillary refill. Absent: tenderness, pedal edema, joint swelling, calf tenderness Back exam: Present: normal inspection Neurological exam: Present: alert, oriented X3, CN II-XII intact Psychiatric exam: Present: normal affect, normal mood Skin exam: Present: warm, dry, intact, normal color. Absent: rash Course Vital Signs 02/07/24 02/07/24 15:15 18:15 Temperature 97.9 F Pulse Rate 80 78 Respiratory 18 18 Rate Blood Pressure 141/75 142/72 O2 Sat by Pulse 97 97 Oximetry - Reevaluation(s) Reevaluation #1: 02/07/24 17:50 Medical records reviewed Reevaluation #2: 02/07/24 17:50 Patient symptoms improved Reevaluation #3: 02/07/24 17:50 Patient informed of results and questions answered Reevaluation #4: Was pt. sent in by a medical professional or institution (, PA, CARB[employer] BLOCKS PRESS OPERATOR, urgent care, hospital, or senior living...) When possible be specific @ -no Did you speak to anyone other than the patient for history (EMS, parent, family, police, friend...)? What history was obtained from this source @ -no Did you review nursing and triage notes (agree or disagree)? Why? @ -agree Are old charts reviewed (outside hosp., previous admission, EMS record, old EKG, old radiological studies, urgent care reports/EKG's, senior living records)? Report findings @ -yes Differential Diagnosis (chest pain, altered mental status, abdominal pain women, abdominal pain men, vaginal bleeding, weakness, fever, dyspnea, syncope, headache, dizziness, GI bleed, back pain, seizure, CVA, palpatations, mental health, musculoskeletal)? @ -prior EKG interpreted by me (3pts min.). @ -no X-rays interpreted by me (1pt min.). @ -yes negative for acute disease CT interpreted by me (1pt min.). @ -no U/S interpreted by me (1pt. min.). @ -no What testing was considered but not performed or refused? (CT, X-rays, U/S, labs)? Why? @ -none What meds were considered but not given or refused? Why? @ -none Did you discuss the management of the patient with other professionals (professionals i.e. , PA, [employer] BLOCK[employer] PRESS OPERATOR, lab, RT, psych nurse, social media project manager, cell liner, teacher, promotion officer, trimming caser)? Give summary @ -no Was smoking cessation discussed for >3mins.? @ -no Was critical care preformed (if so, how long)? @ -no Were there social determinants of health that impacted care today? How? (Homelessness, low income, unemployed, alcoholism, drug addiction, transportation, low edu. Level, literacy, decrease access to med. care, correction, rehab)? @ -none Was there de-escalation of care discussed even if they declined (Discuss DNR or withdrawal of care, Hospice)? DNR status @ -no What co-morbidities impacted this encounter? (DM, HTN, Smoking, COPD, CAD, Cancer, CVA, ARF, Chemo, Hep., AIDS, mental health diagnosis, sleep apnea, morbid obesity)? @ -none Was patient admitted / discharged? Hospital course, mention meds given and route, prescriptions, significant lab abnormalities, going to OR and other pertinent info. @ - 74 male to ER for evaluation of hip pain. Right trochanteric bursitis, patient has adequate pain control here in the ER able to ambulate and can be discharged home Discharge Undiagnosed new problem with uncertain prognosis? @ -no Drug Therapy requiring intensive monitoring for toxicity (Heparin, Nitro, Insulin, Cardizem)? @ -no Were any procedures done? @ -Yes versus aspiration and injection Diagnosis/symptom? @ -Intertrochanteric bursitis Acute, or Chronic, or Acute on Chronic? @ -Acute Uncomplicated (without systemic symptoms) or Complicated (systemic symptoms)? @ -Complicated Side effects of treatment? @ -no Exacerbation, Progression, or Severe Exacerbation? @ -exacerbation Poses a threat to life or bodily function? How? (Chest pain, [place], [place], pneumonia, PE, COPD, DKA, ARF, appy, cholecystitis, CVA, Diverticulitis, Homicidal, Suicidal, threat to staff... and all critical care pts) @ -no Procedures - Bursa Procedures Consent Obtained: verbal consent Indications: injection only Site of Procedure: trochanteric bursa (R) Local Anesthetic Used: Lidocaine 1% Medication Injected: Methylprednisolone Acetate Lidocaine Added to Medication: Yes Patient Tolerated Procedure: well Complications: none Medical Decision Making - Medical Decision Making 74 male to ER for evaluation of hip pain. Right trochanteric bursitis, patient has adequate pain control here in the ER able to ambulate and can be discharged home - Radiology Data Radiology results: report reviewed (X-ray right hip is negative for acute disease), image reviewed Disposition Clinical Impression: Trochanteric bursitis, right hip Disposition: HOME SELF-CARE Condition: Good Instructions (If sedation given, give patient instructions): Hip Bursitis (ED) Is patient prescribed a controlled substance at d/c from ED?: No Referrals: Alex Timmons MD [Primary Care Provider] - 1-2 days Time of Disposition: 17:50
[2024-02-07] MEDS: LIDOCAINE 2%-EPI 1:100,000 20 ML VIAL SQ STA (16:32)
[2024-02-07] MEDS: methylPREDNISolone ACETATE 80 MG/ML 1 ML VIAL INTRABURSA STA (16:33)
--- NOTE | 2024-02-07 17:36 | XR ---
EXAMINATION TYPE: XR Hip Complete 2 views RT DATE OF EXAM: 02/07/2024 Comparison: None Clinical History: 74-year-old male complaining of severe right hip pain pain Findings: Vascular calcifications. Mild degenerative change SI joint. Mild marginal spurring of the right hip. There is osteopenia limiting assessment but no displaced fracture seen. Impression: Osteopenia limiting the assessment but no acute fracture identified. Mild degenerative change right S I joint. Vascular calcifications.
[2024-02-07] MEDS: HYDROmorphone 1 MG/ML 1 ML SYRINGE IM STA (18:01)
[2024-02-07] MEDS: traMADol 50 MG STARTER PACK 3 TAB BTL PO STA (18:02)
[2024-02-07] MEDS: ETODOLAC 400 MG TAB PO STA (18:03)
[2024-02-07 18:19] VITALS: BP 142/72; PULSE 78
== END 2024-02-07 18:15 | disposition home or self-care (01) ==
LOC: EC 15:05
DX: M70.61 Trochanteric bursitis, right hip (principal)
CPT/HCPCS: 99283; 96372; 20610; 73502; J1170; J1010

== ENCOUNTER 2024-02-08 09:43 | Emergency (ER) | payer MEDICARE ==
[2024-02-08 09:50] VITALS: TEMP 97.8
[2024-02-08] MEDS: KETOROLAC 15 MG/ML 1 ML VIAL IM STA (10:31)
--- NOTE | 2024-02-08 10:31 | ED ---
General Adult HPI - General Source: patient, family, RN notes reviewed Mode of arrival: wheelchair Limitations: no limitations <Luna Covarrubias - Last Filed: 02/08/24 13:12> <Mariely Collins - Last Filed: 02/09/24 23:15> - General Chief complaint: Extremity Injury, Lower Stated complaint: Severe R hip pain Time Seen by Provider: 02/08/24 10:28 - History of Present Illness Initial comments: 74-year-old male presented to ER with a chief complaint of right hip pain. Patient seen here yesterday and diagnosed with trochanteric bursitis and received a bursa injection at that time. Patient reports he was sent home with tramadol. He states he is took tramadol at 9 AM. He reports his pain was improved upon discharge but throughout the night and this morning the pain returned. He describes it as a sharp 10 out of 10 pain exacerbated with movement. He states when he is sitting still pain is at a 0. He denies any numbness or tingling in his right lower extremity. He denies any known injuries or traumas. He does report mild back pain last week which radiated to the right side. He denies any saddle paresthesias, bowel or bladder incontinence, fevers or chills. No other complaints. (Luna Covarrubias) - Related Data Home Medications Medication Instructions Recorded Confirmed Aspirin 81 mg PO HS 06/28/14 09/01/23 Fenofibrate [Lofibra] 160 mg PO DAILY 06/28/14 09/01/23 Insulin Glargine [Lantus Vial] 40 unit SQ QAM 06/28/14 09/01/23 glipiZIDE [Glucotrol] 5 mg PO BID PRN 07/26/14 09/01/23 Metoprolol Succinate [Toprol XL] 100 mg PO HS 04/24/23 09/01/23 Omeprazole [PriLOSEC] 20 mg PO BID 04/24/23 09/01/23 Rosuvastatin [Crestor] 20 mg PO HS 04/24/23 09/01/23 Tamsulosin [Flomax] 0.4 mg PO DAILY 04/24/23 09/01/23 Zinc Gluconate [Zinc] 50 mg PO DAILY 04/24/23 09/01/23 Acetaminophen [Tylenol Arthritis] 1,300 mg PO DIRECTED PRN 07/18/23 08/26/23 Amlodipine Besylate/Valsartan 1 each PO QAM 07/18/23 09/01/23 [Amlodipine Besylate/Valsartan 10-320 mg] Baclofen 10 mg PO DIRECTED PRN 07/18/23 09/01/23 Butalb/Acetaminophen/Caffeine 1 each PO Q6HR PRN 07/18/23 08/26/23 [Fioricet 50-300-40 mg Capsule] Famotidine [Pepcid] 40 mg PO BID 07/18/23 09/01/23 HYDROcodone/APAP 5-325MG [[place] 1 tab PO Q6HR PRN 07/18/23 08/26/23 5-325] Spironolactone 25 mg PO QAM 07/18/23 09/01/23 hydrALAZINE HCL [Apresoline] 100 mg PO TID 07/18/23 09/01/23 hydroCHLOROthiazide 25 mg PO QAM 07/18/23 09/01/23 Escitalopram [Lexapro] 10 mg PO DAILY 08/26/23 09/01/23 LORazepam [Ativan] 0.5 mg PO BID 08/26/23 09/01/23 metFORMIN HCL [Glucophage] 500 mg PO BID 08/26/23 09/01/23 Ibuprofen [Motrin Ib] 200 mg PO Q8H 09/01/23 09/01/23 Previous Rx's Medication Instructions Recorded Cyanocobalamin [Vitamin B-12] 1,000 mcg PO DAILY #30 tab 04/26/23 Ticagrelor [Brilinta] 90 mg PO BID #180 tab 07/23/23 Cephalexin [Keflex] 500 mg PO Q6HR 7 Days #28 cap 09/07/23 Lidocaine 5% Patch [Lidoderm] 1 patch TOPICAL DAILY #30 patch 02/08/24 Allergies Allergy/AdvReac Type Severity Reaction Status Date / Time No Known Allergies Allergy Verified 02/08/24 09:50 Review of Systems ROS Other: All systems not noted in ROS Statement are negative. <Luna Covarrubias - Last Filed: 02/08/24 13:12> ROS Other: All systems not noted in ROS Statement are negative. <Mariely Collins - Last Filed: 02/09/24 23:15> ROS Statement: Those systems with pertinent positive or pertinent negative responses have been documented in the HPI. Past Medical History Past Medical History: Diabetes Mellitus, GERD/Reflux, Hyperlipidemia, Hypertension, Pneumonia Additional Past Medical History / Comment(s): HEART MURMUR, palpitations History of Any Multi-Drug Resistant Organisms: None Reported Past Surgical History: Adenoidectomy, Cholecystectomy, Heart Catheterization, Heart Catheterization With Stent, Hernia Repair, Tonsillectomy Additional Past Surgical History / Comment(s): rt rotator cuff surg., rt knee ar throscopy, hiatal hernia repair, rt inguinal hernia repair, hemorrhoidectomy, rhinoplasty Past Anesthesia/Blood Transfusion Reactions: No Reported Reaction, Motion Sickness Date of Last Stent Placement:: 07-22-23 Past Psychological History: Anxiety Smoking Status: Never smoker Past Alcohol Use History: None Reported Past Drug Use History: None Reported - Past Family History Father Family Medical History: Myocardial Infarction ([place]) Additional Family Medical History / Comment(s): at 45 due to [place] Mother Family Medical History: Rheumatoid Arthritis (RA) <Luna Covarrubias - Last Filed: 02/08/24 13:12> General Exam Limitations: no limitations General appearance: alert, in no apparent distress Respiratory exam: Present: normal lung sounds bilaterally. Absent: respiratory distress, wheezes, rales, rhonchi, stridor Cardiovascular Exam: Present: regular rate, normal rhythm, normal heart sounds. Absent: systolic murmur, diastolic murmur, rubs, gallop, clicks Extremities exam: Present: tenderness (Right trochanteric bursa. No pain with internal or external rotation of hip. 2+ right dorsalis pedis pulse. Mild pain with palpation of right lumbar spine and pelvic girdle) Back exam: Present: normal inspection Neurological exam: Present: alert, oriented X3, CN II-XII intact Skin exam: Present: warm, dry, intact, normal color. Absent: rash <Luna Covarrubias - Last Filed: 02/08/24 13:12> Course Vital Signs 02/08/24 02/08/24 02/08/24 09:47 09:50 11:36 Temperature 97.8 F Pulse Rate 58 L 87 78 Respiratory 18 16 20 Rate Blood Pressure 197/91 180/90 180/90 O2 Sat by Pulse 96 98 98 Oximetry 02/08/24 12:44 Temperature Pulse Rate 68 Respiratory 16 Rate Blood Pressure 160/90 O2 Sat by Pulse 98 Oximetry Medical Decision Making - Radiology Data Radiology results: report reviewed, image reviewed <Luna Covarrubias - Last Filed: 02/08/24 13:12> - Medical Decision Making Was pt. sent in by a medical professional or institution (MIC Wood, REGULATED PROGRAM MANAGER, urgent care, hospital, or detention...) When possible be specific @ -No Did you speak to anyone other than the patient for history (EMS, parent, family, police, friend...)? What history was obtained from this source @ -No Did you review nursing and triage notes (agree or disagree)? Why? @ -I reviewed and agree with nursing and triage notes Were old charts reviewed (outside hosp., previous admission, EMS record, old EKG, old radiological studies, urgent care reports/EKG's, detention records)? Report findings @ -I reviewed ER visit from 02-07-2024 patient seen here for similar complaint. Patient received right trochanteric bursa injection. Patient discharged in stable condition Differential Diagnosis (chest pain, altered mental status, abdominal pain women, abdominal pain men, vaginal bleeding, weakness, fever, dyspnea, syncope, headache, dizziness, GI bleed, back pain, seizure, CVA, palpatations, mental health, musculoskeletal)? @Differential Musculoskeletal: Muscular strain, contusion, ligament sprain, fracture, arthritis, septic arthritis, bursitis, cellulitis, muscle spasm, nerve compression, DVT, arterial occlusion, herpes zoster, electrolyte abnormality, tumor.... This is not meant to be in all inclusive list EKG interpreted by me (3pts min.). @ -None X-rays interpreted by me (1pt min.). @ -Lumbar spine x-rays interpreted by me negative for acute process. CT interpreted by me (1pt min.). @ -None done U/S interpreted by me (1pt. min.). @ -None done What testing was considered but not performed or refused? (CT, X-rays, U/S, labs)? Why? @ -None What meds were considered but not given or refused? Why? @ -None Did you discuss the management of the patient with other professionals (professionals i.e. , MIC, REGULATED PROGRAM MANAGER, lab, RT, psych nurse, social studies teacher, lawyer real estate, teacher, sheriff officer, case worker)? Give summary @ -No Was smoking cessation discussed for >3mins.? @ -No Was critical care preformed (if so, how long)? @ -No Were there social determinants of health that impacted care today? How? (Homelessness, low income, unemployed, alcoholism, drug addiction, transportation, low edu. Level, literacy, decrease access to med. care, residential, rehab)? @ -No Was there de-escalation of care discussed even if they declined (Discuss DNR or withdrawal of care, Hospice)? DNR status @ -No What co-morbidities impacted this encounter? (DM, HTN, Smoking, COPD, CAD, Cancer, CVA, ARF, Chemo, Hep., AIDS, mental health diagnosis, sleep apnea, morbid obesity)? @ -HTN/obese Was patient admitted / discharged? Hospital course, mention meds given and route, prescriptions, significant lab abnormalities, going to OR and other pertinent info. @ -Discharge. 74-year-old male presented to the ER with chief complaint of right hip pain. Patient seen here yesterday for similar complaint and received a right trochanteric bursa injection at that time. Blood pressure on arrival 197/91 was otherwise stable. Elevated blood pressure believed to be due to pain and anxiety at that time. Exam remarkable for tenderness to right trochanteric bursa. No erythema, contusions or rashes present. Patient has full active range of motion. Right lower extremity neurovascular intact. Mild tenderness to the right lumbar spine. Lumbar spine xrays obtained to rule out radiation from back issue. X-rays negative for acute process. Patient received IM Toradol for pain control in the ER. Upon reevaluation, patient resting comfortably in exam room in no signs of acute distress. Results discussed with patient, all questions answered. Patient remained hypertensive at that time and received 10 mg IM hydralazine with improvement of blood pressure to 160/90. Patient stable for discharge at this time. Advised close follow-up with orthopedics, referral given. Lidocaine patches prescribed. Return parameters discussed. Patient discharged in stable condition. Patient verbally expressed understanding agreement care plan. Case discussed with ED attending, Dr. Collins. Undiagnosed new problem with uncertain prognosis? @ -No Drug Therapy requiring intensive monitoring for toxicity (Heparin, Nitro, Insulin, Cardizem)? @ -No Were any procedures done? @ -No Diagnosis/symptom? @ -Trochanteric bursitis/hypertension Acute, or Chronic, or Acute on Chronic? @ -Acute Uncomplicated (without systemic symptoms) or Complicated (systemic symptoms)? @ -Uncomplicated Side effects of treatment? @ -No Exacerbation, Progression, or Severe Exacerbation? @ -No Poses a threat to life or bodily function? How? (Chest pain, [place], [place], pneumonia, PE, COPD, DKA, ARF, appy, cholecystitis, CVA, Diverticulitis, Homicidal, Suicidal, threat to staff... and all critical care pts) @ -No (Luna Covarrubias) Disposition Is patient prescribed a controlled substance at d/c from ED?: No Time of Disposition: 12:19 <Luna Covarrubias - Last Filed: 02/08/24 13:12> <Mariely Collins - Last Filed: 02/09/24 23:15> Clinical Impression: Trochanteric bursitis, right hip Disposition: HOME SELF-CARE Condition: Stable Instructions (If sedation given, give patient instructions): Hip Bursitis (ED) Additional Instructions: Follow-up with orthopedics. Return to the ER for any new or worsening concerns Prescriptions: Lidocaine 5% Patch [Lidoderm] 1 patch TOPICAL DAILY #30 patch Referrals: Alex Timmons MD [Primary Care Provider] - 1-2 days Clatyon Robledo DO [Doctor of Osteopathic Medicine] - 1-2 days
--- NOTE | 2024-02-08 11:04 | XR ---
EXAMINATION TYPE: XR lumbar spine 2 or 3V DATE OF EXAM: 02/08/2024 10:42 AM CLINICAL INDICATION:Male, 74 years old with history of pain; [facility] COMPARISON: None TECHNIQUE: XR lumbar spine 2 or 3V - Frontal, lateral and coned down L5-S1 lateral views of the lumba r spine. FINDINGS: There are 5 lumbar-type vertebral bodies. Mineralization is slightly reduced. No osseous destructive process seen. Vertebral body heights are maintained, there is no compression fracture seen. There is mild to moderate moderate multilevel degenerative disc disease, greatest in a lower thoracic spine an d at L5-S1. No significant listhesis is seen. Moderate calcification of the abdominal aorta without e vidence of AAA. Left upper quadrant vascular calcifications. Clips in the right upper quadrant likely from cholecystectomy. I IMPRESSION: 1. No radiographic evidence of acute compression fracture. 2. [id number] multilevel disc degeneration.
[2024-02-08] MEDS: LIDOCAINE 4% PATCH TOPICAL ONE (11:53)
[2024-02-08] MEDS: hydrALAZINE HCL 20 MG/ML 1 ML VIAL IM STA (11:53)
[2024-02-08] MEDS: HYDROmorphone 0.5 MG/0.5 ML SYRINGE IM STA (11:57)
[2024-02-08 12:45] VITALS: BP 160/90; PULSE 68; RESP 16
== END 2024-02-08 12:45 | disposition home or self-care (01) ==
LOC: EC 09:43
DX: M70.61 Trochanteric bursitis, right hip (principal); I10 Essential (primary) hypertension; E66.9 Obesity, unspecified; M51.36 Other intervertebral disc degeneration, lumbar region; Z68.29 Body mass index [BMI] 29.0-29.9, adult; Z79.899 Other long term (current) drug therapy
CPT/HCPCS: 99284; 96372 ×2; 72100; J0360; J1885

== ENCOUNTER → 2024-08-18 | Outpatient (CLI) | payer MEDICARE ==
--- NOTE | 2024-08-18 15:35 | XR ---
EXAMINATION TYPE: XR ankle complete RT DATE OF EXAM: 08/18/2024 COMPARISON: 05/16/2016 CLINICAL INDICATION: Male, 74 years old with history of M25.571 PAIN IN RIGHT ANKLE AND JOINTS OF RIG HT FO; TECHNIQUE: 3 views FINDINGS: Vascular calcifications. Minimal degenerative spurring tibiotalar joint. Small posterior pl mazin heel spur. Ankle mortise is congruent with preservation of the distal tibiofibular overlap. Gino ar dome is intact. No acute fracture, subluxation, or dislocation. IMPRESSION: Minimal degenerative spurring tibiotalar joint. Tiny posterior heel spur. Vascular calcifications sug gest underlying diabetes and/or chronic kidney disease. [facility], Workstation: [facility], 08/18/2024 3:32 PM
== END | disposition home or self-care (01) ==
LOC: RADXRMAIN 14:48
PROVIDERS: ATTEND Internal Medicine Geriatric Medicine
DX: M25.571 Pain in right ankle and joints of right foot (principal); M77.31 Calcaneal spur, right foot

== ENCOUNTER → 2025-03-11 | Outpatient (CLI) | payer MEDICARE | END | disposition home or self-care (01) | LOC: LABWHC1 11:55 | PROVIDERS: ATTEND Physician Assistant | DX: E34.00 Carcinoid syndrome, unspecified (principal) | CPT/HCPCS: 36415; 86316 ==